=== PATIENT | female | born 1970 | race Caucasian/White ===

== ENCOUNTER 2019-12-30 10:17 | Outpatient (CLI) | payer OTHER, SELFPAY ==
--- NOTE | ~2019-12-30 | MM_ITS ---
EXAMINATION: MM screening reym BI w teri HISTORY: Screening mammogram TECHNIQUE: Craniocaudal and mediolateral oblique 3-D tomosynthesis images were obtained and synthetic 2-D images were generated. CAD analysis was submitted and interpreted. COMPARISON: Comparison to multiple prior studies sequentially, with oldest reviewed study dated 09/11. BREAST PARENCHYMAL COMPOSITION: There are scattered areas of fibroglandular density. FINDINGS: Bilateral breast asymmetries are stable. There is no evidence of suspicious mass, calcifica tion, or architectural distortion to suggest malignancy in either breast. There has been no suspiciou s interval change. IMPRESSION: 1. No mammographic evidence of malignancy. 2. Recommend routine screening mammography in one year. BI-RADS Category 1: Negative Reviewed, dictated and finalized at location A.
== END 2019-12-30 10:18 | disposition home or self-care (01) ==
LOC: ANHIMG 10:22
PROVIDERS: PCP Internal Medicine; Visit Provider Obstetrics & Gynecology
DX: Z12.31 Encounter for screening mammogram for malignant neoplasm of breast (principal)
CPT/HCPCS: 77063; 77067

== ENCOUNTER 2021-01-04 15:33 | Outpatient (CLI) | payer OTHER, SELFPAY ==
--- NOTE | ~2021-01-04 | MM_ITS ---
EXAMINATION: MM screening [facility] BI w teri HISTORY: Screening mammogram TECHNIQUE: Craniocaudal and mediolateral oblique 3-D tomosynthesis images were obtained and synthetic 2-D images were generated. CAD analysis was submitted and interpreted. COMPARISON: 12/30/2019, 12/23/2018, 12/09/2018 BREAST PARENCHYMAL COMPOSITION: There are scattered areas of fibroglandular density. FINDINGS: There is no evidence of suspicious mass, calcification, or architectural distortion to sugg est malignancy in either breast. There has been no suspicious interval change. IMPRESSION: 1. No mammographic evidence of malignancy. 2. Recommend routine screening mammography in one year. BI-RADS Category 1: Negative Reviewed, dictated and finalized at location A.
== END 2021-01-04 15:34 | disposition home or self-care (01) ==
LOC: ANHIMG 15:35
PROVIDERS: PCP Internal Medicine; Visit Provider Obstetrics & Gynecology
DX: Z12.31 Encounter for screening mammogram for malignant neoplasm of breast (principal)
CPT/HCPCS: 77063; 77067

== ENCOUNTER 2022-04-04 07:53 | Outpatient (CLI) | payer OTHER, SELFPAY ==
--- NOTE | ~2022-04-04 | MM_ITS ---
EXAMINATION: MM screening remy BI w teri HISTORY: Screening mammogram TECHNIQUE: Craniocaudal and mediolateral oblique 3-D tomosynthesis images were obtained and synthetic 2-D images were generated. CAD analysis was submitted and interpreted. COMPARISON: 01/04/2021, 12/30/2019, 12/23/2018 bilateral screening mammogram examinations BREAST PARENCHYMAL COMPOSITION: There are scattered areas of fibroglandular density. FINDINGS: New approximately 3 x 5.8 mm circumscribed opacity in the posterior central right breast (M LO Tomosynthesis image 28/59). Diagnostic right mammogram and right breast ultrasound examination are recommended. Otherwise there is no evidence of suspicious mass, calcification, or architectural distortion to sugg est malignancy in either breast. There has been no other suspicious interval change. IMPRESSION: 1. New 3 x 5.8 mm opacity in the posterior central right breast 2. Diagnostic right mammogram and targeted right breast ultrasound examination are recommended. BI-RADS Category 0: Incomplete: Needs additional imaging evaluation. Reviewed, dictated and finalized at location A.
== END 2022-04-04 07:54 | disposition home or self-care (01) ==
PROVIDERS: PCP Internal Medicine; Visit Provider Internal Medicine
DX: Z12.31 Encounter for screening mammogram for malignant neoplasm of breast (principal); R92.8 Other abnormal and inconclusive findings on diagnostic imaging of breast
CPT/HCPCS: 77063; 77067

== ENCOUNTER 2022-05-05 13:31 | Outpatient (CLI) | payer OTHER, SELFPAY ==
--- NOTE | ~2022-05-05 | MMUS_ITS ---
EXAMINATION: MM diagnostic remy RT w teri, US breast RT complete HISTORY: Follow-up right breast asymmetry TECHNIQUE: Additional 3-D tomosynthesis images of right were performed and synthetic 2-D images were generated. CAD analysis was submitted and interpreted. High resolution complete right breast ultrasou nd was performed. COMPARISON: Comparison to multiple prior studies sequentially, with oldest reviewed study dated 12/18. BREAST PARENCHYMAL COMPOSITION: Breast composed of scattered areas of fibroglandular density FINDINGS: MAMMOGRAPHIC FINDINGS: There are no suspicious masses, calcifications or architectural distortion in the right breast. ULTRASOUND: Complete right breast US of all 4 quadrants of the breasts and retroareolar region was reviewed. Ther e are multiple right breast cysts, largest at 1:00, 5 cm from the nipple measuring 6 mm. There are mi ldly enlarged right axillary lymph nodes which retain their normal fatty hilum, largest measuring 1.8 cm. These are likely reactive. IMPRESSION: 1. No evidence for malignancy in the right breast. Benign findings. 2. Routine yearly screening mammogram and regular clinical breast examination are recommended. BI-RADS Category 2: Benign finding(s). Reviewed, dictated and finalized at location A. IMPRESSION: 1. No evidence for malignancy in the right breast. Benign findings. 2. Routine yearly screening mammogram and regular clinical breast examination a re recommended. BI-RADS Category 2: Benign finding(s).
== END 2022-05-05 13:32 | disposition home or self-care (01) ==
PROVIDERS: PCP Internal Medicine; Visit Provider Internal Medicine
DX: R92.8 Other abnormal and inconclusive findings on diagnostic imaging of breast (principal)
CPT/HCPCS: 76641; 77061; 77065; G0279

== ENCOUNTER 2023-10-16 15:13 | Outpatient (CLI) | payer OTHER, SELFPAY ==
--- NOTE | ~2023-10-16 | MM_ITS ---
EXAMINATION: MM screening remy BI w teri HISTORY: Screening mammogram TECHNIQUE: Craniocaudal and mediolateral oblique 3-D tomosynthesis images were obtained and synthetic 2-D images were generated. CAD analysis was submitted and interpreted. COMPARISON: The 05/05/2022 diagnostic right mammogram and complete right breast ultrasound examinatio n BREAST PARENCHYMAL COMPOSITION: There are scattered areas of fibroglandular density. FINDINGS: There is no evidence of suspicious mass, calcification, or architectural distortion to sugg est malignancy in either breast. There has been no suspicious interval change. IMPRESSION: 1. No mammographic evidence of malignancy. 2. Recommend routine screening mammography in one year. BI-RADS Category 1: Negative Reviewed, dictated and finalized at location A.
== END 2023-10-16 15:14 | disposition home or self-care (01) ==
PROVIDERS: PCP Internal Medicine; Visit Provider Obstetrics & Gynecology
DX: Z12.31 Encounter for screening mammogram for malignant neoplasm of breast (principal)
CPT/HCPCS: 77063; 77067

== ENCOUNTER 2024-09-25 15:30 | Outpatient (CLI) | payer OTHER, SELFPAY ==
--- NOTE | ~2024-09-25 | MR_ITS ---
EXAMINATION: MR knee LT wo con DATE: 09/25/2024 16:11 INDICATION: Left knee pain TECHNIQUE: Magnetic resonance imaging (MRI) of the left knee was performed without intravenous contra st. Sequences included coronal PD-weighted FSE, coronal PD-weighted FS FSE, sagittal T2-weighted FSE , sagittal PD-weighted FS FSE and axial PD weighted fat saturated FSE. COMPARISON: Left knee radiographs dated 09/18/2024 FINDINGS: Medial compartment: Medial meniscus is normal. Articular cartilage is normal. Lateral compartment: There is increased intrasubstance signal at the inner to mid third of the lateral meniscal body but w hich does not unambiguously contact the articular surface to meet criteria for meniscal tear most lik pablito related to mucoid degeneration. There is partial thickness chondral ulceration at the anterior we ightbearing lateral femoral condyle at the juxtaposed central aspect of the lateral tibial plateau. T here is more diffuse mild partial-thickness cartilage loss but with smooth chondral surface along the lateral aspect of the central to posterior weightbearing lateral femoral condyle. There is prominent marrow edema at the lateral femoral condyle which appears centered around a couple curvilinear regions of low signal intensity underlying the articular cortices at the central to post erior weightbearing lateral femoral condyle, each with suggestion of subtle flattening of the curvatu re of the articular cortex suggesting subarticular fractures which could be due to either discrete tr auma or stress or insufficiency fractures. Patellofemoral compartment: Deep chondral ulceration and fissuring with underlying subarticular cystlike change at the cephalad a spect of the patella centered at the apical ridge and involving the small portion of the adjacent med ial and lateral patellar facets. There is additional deep chondral fissuring without degenerative sub chondral changes more caudally at the patellar apical ridge with subarticular edema and cystlike churchill ge at the central aspect of the medial patellar facet. Additional deep chondral ulceration with subar ticular edema-like and cystlike changes at the inferolateral aspect of the lateral patellar facet. Ch ondral swelling with subtle chondral surface regularity at the inferior aspect of the trochlear groov e and medial trochlea. Ligaments and tendons: Anterior and posterior cruciate ligaments are normal. The medial collateral ligament and fibular migdalia ateral ligament complex are normal. The extensor mechanism is normal. The visualized medial and later al hamstring tendons as well as the iliotibial band are normal. Fluid/other: Very small left knee joint effusion at the suprapatellar pouch. No loose osteochondral bodies identif ied. Prominent subcutaneous varicosities along the lateral aspect of the distal thigh, knee and proxi mal lower leg with additional smaller opacities at the medial aspect of the proximal lower leg. IMPRESSION: 1. Prominent marrow edema at the lateral femoral condyle surrounding nondisplaced subarticular fractu re lines underlying the central and posterior weightbearing lateral femoral condyles which could be d ue to either a discrete traumatic event or chronic stress/insufficiency fractures. 2. 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 Reviewed, dictated and finalized at location L. RMATION TECHNOLOGY ACCOUNT MANAGER IMPRESSION: 1. Prominent marrow edema at the lateral femoral condyle surrounding nondisplac ed subarticular fracture lines underlying the central and posterior weightbeari ng lateral femoral condyles which could be due to either a discrete traumatic e vent or chronic stress/insufficiency fractures. 2. Mild osteoarthritis with moderate grade chondral malacia in the lateral comp artment and moderate and high-grade chondral malacia in the patellofemoral comp artment.
== END 2024-09-25 15:31 | disposition home or self-care (01) ==
LOC: GOSHIMG 15:31
PROVIDERS: PCP Orthopaedic Surgery; Visit Provider Orthopaedic Surgery
DX: S72.425A Nondisplaced fracture of lateral condyle of left femur, initial encounter for closed fracture (principal); X58.XXXA Exposure to other specified factors, initial encounter; M17.12 Unilateral primary osteoarthritis, left knee; M94.262 Chondromalacia, left knee
CPT/HCPCS: 73721

== ENCOUNTER 2024-10-27 14:01 | Outpatient (CLI) | payer OTHER, SELFPAY ==
--- NOTE | ~2024-10-27 | MM_ITS ---
EXAMINATION: MM screening remy BI w teri HISTORY: Screening TECHNIQUE: Craniocaudal and mediolateral oblique 3-D tomosynthesis images were obtained and synthetic 2-D images were generated. CAD analysis was submitted and interpreted. COMPARISON: Comparison to multiple prior studies sequentially, with oldest reviewed study dated 09/2018. BREAST PARENCHYMAL COMPOSITION: Not dense: There are scattered areas of fibroglandular density. FINDINGS: There is no evidence of suspicious mass, calcification, or architectural distortion to sugg est malignancy in either breast. There has been no suspicious interval change. IMPRESSION: 1. No mammographic evidence of malignancy. 2. Recommend routine screening mammography in one year. BI-RADS Category 1: Negative Reviewed, dictated and finalized at location A.
--- OUTSIDE RECORDS SUMMARY | 2024-10-27 16:07 | XMS_ITS | Encounter Summary ---
Author Organization [facility] Address [address] [place] [address] Care Team Providers Care Strategic Advisor Name Role Phone Steve Salinas MD Primary Care Provider [phone] Encounter Details Date Type Department Care Team (Latest Contact Info) Description 05/08/2022 [employer] Message Enc [facility] Multispecialty Care - [place] [address] [place] [address] [address] [place] [address] Steve Salinas MD [address] [place] [address] [address] [place], [place] [id number] Mammogram result Social History Tobacco Use Types Packs/Day Years Used Date Smoking Tobacco: Every Day Cigarettes 1 35 Smokeless Tobacco: Current Comments:counseled by Dr Fátima bey Alcohol Use Standard Drinks/Week Comments Yes 0 (1 standard drink = 0.6 oz pur e alcohol) socially PHQ-2 Answer Date Recorded PHQ-2 Score - If the patient scores above 3, please move on to questions 3-9 0 04/26/2022 Comments No Sex and Gender Information Value Date Recorded Sex Assigned at Not on file Legal Sex Female 3:06 PM CDT Gender Identity Not on file Sexual Orientation Not on file COVID-19 Exposure Response Date Recorded In the last 10 days, have yo u been in contact with someone who was confirmed or suspected to have Coronavirus/COVID-19? No / Unsure 04/26/2022 7:37 AM CDT documented as of this encounter Plan of Treatment Not on file documented as of this encounter Visit Diagnoses Not on filedocumented in this encounter Additional Health Concerns Assessment Noted Time PHQ-9 Depression Total Score: 10 12/26/ 022 3:10 PM CDT documented as of this encounter Care Teams Strategic Advisor Relationship Specialty Start Date End Date Steve Salinas MD [address] [address] PCP - General INTERNAL MEDICINE 11/14/21 documented as of this encounter
--- OUTSIDE RECORDS SUMMARY | 2024-10-27 16:07 | XMS_ITS | Encounter Summary ---
Author Organization [facility] Address [address] [place] [address] Care Team Providers Care Director Of Assisted Living Name Role Phone Lin Reed MD Primary Care Provider [phone] Encounter Details Date Type Department Care Team (Late st Contact Info) Description 10/23/2024 Results Follow-Up [facility] [place] [address] [place] [address] Leigh Calixto, [place] [address] [facility] [place] [address] [place] [address] HEMOGLOBIN A1C, MICROALBUMIN/CREATIN INE RATIO, RANDOM UR, VITAMIN B12 LEVEL, Additional followed-up results: 5 Social History Tobacco Use Types Packs/Day Years Used Date Smoking Tobacco: Every Day Cigarettes Smokeless Tobacco: Never Alcohol Use Standard Drinks/Week Comments Yes 0 (1 standard drink = 0.6 oz pur e alcohol) occassionally Comments No Sex and Gender Information Value Date Recorded Sex Assigned at Not on file Legal Sex Female 9:06 AM CDT Gender Identity Not on file Sexual Orientation Not on file documented as of this encounter Miscellaneous Notes * Result Encounter Note - Leigh Calixto ANP - 10/23/2024 1:09 PM CDT Contact patient regarding result. Blood sugar remains uncontrolled. Cholesterol is high but will stay high until blood sugar improved. Vit B 12 slightly low as well. Recommend: 1- consider XR version of Metformin-- prescription less likely to cause loose bowels that medication she previously tried. 2-Start vit B 12 1000 mcg daily. 3- take a vit D supplement daily OTC. Will discuss in detail at next week appointment. documented in this encounter Plan of Treatment Not on file documented as of this encounter Visit Diagnoses Not on filedocumented in this encounter Care Teams Director Of Assisted Living Relationship Specialty Start Date End Date Lin Reed MD [address] [place] [id number] PCP - General Internal Medicine 12/18/23 documented as of this encounter
--- OUTSIDE RECORDS SUMMARY | 2024-10-27 16:07 | XMS_ITS | Continuity of Care Document ---
Author Organization [facility] Address [address] [facility] [address] [place] [address] Phone Care Team Providers Care Veneer Trimmer Name Role Phone Urbano Meneses Unavailable Unavailable Advance Directives Directive Yes / No Effective Date File Name No Information Encounters Encounter Description Practice Location Reason(s) For Visit Diagnoses Date Provider Providers Copied on Encounter [facility], [address], [place], [place], [id number], [place] tel:[phone] [facility] No Information [phone] 0 Zaira Clement. [address] [facility] , [address], [place], [address], [place]. tel:[phone] Family History Family Member Type Diagnosis Age At Onset No Information Payers Payer name Insurance type Covered constitution party ID Authoriza tion(s) No Information Social History Type Description Quantity Date Captured Comments Sex Female Smoking Status No Information Chief Complaint And Reason For Visit No Information Reason For Referral Reason For Referral No Information History Of Present Illness Encounter Date Complaint History Of Prese nt Illness No Information Functional Status Date Functional Assessmen t No Information Instructions Date Instruction Additional Infor mation No Information Assessments Type Assessment Date No Information Patient Care Teams Name Effective Dates (start - stop) Status Members No Information
--- OUTSIDE RECORDS SUMMARY | 2024-10-27 16:07 | XMS_ITS | Encounter Summary ---
Author Organization [facility] Address [address] [place] [address] Care Team Providers Care Annual Giving Director Name Role Phone Steve Salinas MD Primary Care Provider [phone] Encounter Details Date Type Department Care Team (Late st Contact Info) Description 06/14/2022 [email or web address] Message Enc [facility] Multispecialty Care - [address] [place] [address] Captain Wiset, [facility] Provider lab results Social History Tobacco Use Types Packs/Day Years Used Date Smoking Tobacco: Every Day Cigarettes 1 35 Smokeless Tobacco: Never Comments:counseled by Dr Fátima bey Alcohol Use [...] suspected to have Coronavirus/COVID-19? 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
--- OUTSIDE RECORDS SUMMARY | 2024-10-27 16:08 | XMS_ITS | Clinical Summary ---
Author Organization [facility] [employer] [facility] Address [address] [place] [address] Care Team Providers Care Supervisor Fabrication Name Role Phone Lin Reed MD Primary Care Provider [phone] Allergies Active Allergy Reactions Criticality Noted Date Comments Ciprofloxacin Unknown 08/29/2017 Metformin Diarrhea Low 02/02/2023 Penicillins Rash Low 11/14/2021 Medications primidone 50 mg tablet Take 50 mg by mouth daily at bedtime. 06/09/20 22 Active CYANOCOBALAMIN, VITAMIN B-12, ORAL Take 1,000 mcg by mouth daily. Active INTRAUTERINE DEVICE, IUD, INTRAUTERINE by Intrauterine route. Active VITAMIN E ORAL Take by mouth. Active Insulin Commerce, Disposable, 31 gauge x 5/16 NeedleIndication s:Type 2 diabetes mellitus without complication, without long-term current use of insulin (CMS/[facility]AC, [facility]) Use as directed with PEN device. 100 Each 06/22/20 23 Active rOPINIRole (REQUIP) 0.5 mg tablet take 1 tablet by mouth once daily at bedtime 90 Tablet 01/09/20 24 Active metoprolol succinate (TOPROL XL) 50 mg Extended Release 24 hour tablet Take 1 Tablet (50 mg) by mouth daily. 90 Tablet 2 06/24/20 24 Active diclofenac sodium (VOLTAREN) 75 mg Tablet, Delayed Release (E.C.) Take 1 Tablet (75 mg) by mouth 1 time daily as needed for Other (See Comment) (sciatic nerve pain). 1 Tablet 06/24/20 24 Active dapagliflozin propanediol (Farxiga) 10 mg TabletIndication s:Type 2 diabetes mellitus without complication, without long-term current use of insulin (CMS/HCC) Take 1 Tablet (10 mg) by mouth daily in the morning. 90 Tablet 07/21/20 24 Active buPROPion HCL (WELLBUTRIN XL) 300 mg Extended Release 24 hour tabletIndication s:Depressive disorder Take 1 Tablet (300 mg) by mouth daily in the morning. 90 Tablet 10/14/19 25 Active rosuvastatin (CRESTOR) 40 mg tablet Take 1 Tablet (40 mg) by mouth daily. 90 Tablet 10/14/19 25 Active sertraline (ZOLOFT) 50 mg tabletIndication s:Depressive disorder Take 1 Tablet (50 mg) by mouth daily. 90 Tablet 10/14/19 25 Active buPROPion HCL (WELLBUTRIN XL) 300 mg Extended Release 24 hour tabletIndication s:Depressive disorder Take 1 Tablet (300 mg) by mouth daily in the morning. 90 Tablet 06/24/20 24 025 Discontin ued(Reord er) rosuvastatin (CRESTOR) 40 mg tablet Take 1 Tablet (40 mg) by mouth daily. 90 Tablet 06/24/20 24 025 Discontin ued(Reord er) sertraline (ZOLOFT) 50 mg tabletIndication s:Depressive disorder Take 1 Tablet (50 mg) by mouth daily. 90 Tablet 06/24/20 24 025 Discontin ued(Reord er) Active Problems Problem Noted Date Diagnosed Date Tobacco use 07/21/2024 Chronic left-sided low back pain with left-sided sciatica 06/22/2023 Type 2 diabetes mellitus wit hout complication, without long-term current use of insulin 02/02/2023 Mixed hyperlipidemia 02/02/2023 Hereditary essential tremor 08/19/2018 Essential hypertension 08/19/2018 Depressive disorder 08/19/2018 Obesity 08/19/2018 Dystonic tremor 07/02/2017 Encounters Date Type Department Care Team Description 10/23/2024 Results Follow-Up [facility] [employer] [place] [address] [place] [phone] Leigh Calixto, LLUVIA HEMOGLOBIN A1C, MICROALBUMIN/CREATINI NE RATIO, RANDOM UR, VITAMIN B12 LEVEL, Additional followed-up results: 5 10/20/2024 7:40 AM CDT Office Visit [facility] at [employer] [place] [address] [place] [address] Type 2 diabetes mellitus without complication, without long-term current use of insulin ([facility], [facility]); Mixed hyperlipidemia 10/16/2024 1:40 PM CDT Procedure visit [facility] at [place] [address] [place] [phone] Issue of repeat prescription for medication (Primary Dx) 10/13/2024 Refill [facility] at [place] [address] [place] [phone] Leigh Calixto, ANP Depressive disorder 09/23/2024 External Device Data STL ABSTRACTION Provider, Abstract 09/15/2024 2:30 PM GAS TRANSFER OPERATOR Office Visit [facility] at [place] [address] [place] [phone] Vanda Chavarria, JAYANT Left lateral knee pain (Primary Dx) 09/10/2024 External Device Data STL ABSTRACTION Provider, Abstract 09/02/2024 External Device Data STL ABSTRACTION Provider, Abstract 08/26/2024 External Device Data STL ABSTRACTION Provider, Abstract 08/19/2024 External Device Data STL ABSTRACTION Provider, Abstract 08/19/2024 External Device Data STL ABSTRACTION Provider, Abstract 08/05/2024 External Device Data STL ABSTRACTION Provider, Abstract from Last 3 Months Immunizations Immunization Administration Dates Next Due (ADACEL/BOOSTRIX)(10 YR UP) TDAP VACCINE, 0.5ML, IM 12/26/2021 (PNEUMOVAX 23)(50 YRS UP) PN EUMOCOCCAL POLYSACCHARIDE (PPV23) 0.5 ML, IM 06/09/2022 INFLUENZA VACCINE QUADRIVALENT 6 MOS UP PF IM INFLUENZA VACCINE TRIVALENT SPLIT VIRUS, (6 MOS UP), 0.5ML (PF), IM 04/30/2024 Family History Medical History Relation Name Comments Irregular heart beat Brother 2 Sudden Brother 3 MVA Cancer Brother 4 Heart Attack Brother 4 Heart Failure Father Cancer Mother Heart Attack Paternal Grandfather No Known Problems Son Relation Name Status Comments Brother 1 Alive Brother 2 Alive Brother 3 Brother 4 Father Maternal Grandfather Maternal Grandmother Mother Paternal Grandfather Paternal Grandmother Son Alive Social History Tobacco Use Types Packs/Day Years [...] on file Sexual Orientation Not on file Last Filed Vital Signs Vital Sign Reading Time Taken Comments Blood Pressure 110/58 10/20/2024 7:26 AM CDT Pulse 67 09/15/2024 2:11 PM GAS TRANSFER OPERATOR Temperature 36.9 C (98.4 F) 09/15/2024 2:11 PM GAS TRANSFER OPERATOR Respiratory Rate 16 09/15/2024 2:11 PM GAS TRANSFER OPERATOR Oxygen Saturation 97% 09/15/2024 2:11 PM GAS TRANSFER OPERATOR Inhaled Oxygen Concentration - - Weight 93.5 kg (206 lb 3.2 oz) 10/20/2024 7:26 A M CDT Height 167.6 cm (5' 6 ) 10/20/2024 7:26 AM CDT Body Mass Index 33.28 10/20/2024 7:26 AM CDT Plan of Treatment Health Maintenance Due Date Last Done Comments HEPATITIS B VACCINES (1 of 3 - 19+ 3-dose series) 1990 HPV/Cotest (21-29) 1992 HPV/Cotest (30-65) 2001 FIT-DNA Q 3 years 2016 FIT/FOBT Q 1 year 2016 Flex Sig/CT Colonography Q 5 years 2016 ZOSTER VACCINE (1 of 2) 2021 BREAST CANCER SCREENING 05/05/2023 05/05/2022, 05/05 Preventative Visit- Commercial 07/23/2024 11/14/2021 COLORECTAL SCREENING 12/12/2024 12/12/2021 Colorectal Cancer Screening 12/12/2024 DIABETES HBA1C Q 6 MONTHS 04/21/20252024, 06/24/2024, 06/22/2023, Additional history exists DIABETES ANNUAL RETINAL EXAM 06/10/2025 06/10/2024, 12/21/2022 DIABETES ANNUAL FOOT EXAM 06/24/20252023, 06/24/2024, 06/22/2023, Additional history exists DIABETES MICROALBUMIN ANNUAL SCREEN 10/20/2025 10/20/2024, 06/24/2024, 02/02/2023 LDL CHOLESTEROL ANNUAL 10/20/2025 , 11/09/2023, 06/22/2023, Additional history exists CERVICAL CANCER SCREENING 10/21/2025 PAP SMEAR 10/21/2025 10/21/2022 (Prev iously completed) DTAP/TDAP/TD VACCINES (2 - T d or Tdap) 12/27/2031 12/26/2021 INFLUENZA VACCINE Completed 04/30/2024, 04/10/2022 Procedures Procedure Name Priority Date/Time Associated Diagnosis Comments LIPID PANEL Routine 10/20/2024 7:16 AM CDT Type 2 diabetes mellitus without complication, without long-term current use of insulin (CMS/HCC) Mixed hyperlipidemia COMPREHENSIVE METABOLIC PANEL Routine 10/20/2024 7:16 AM CDT Type 2 diabetes mellitus without complication, without long-term current use of insulin (CMS/HCC) CBC WITH DIFFERENTIAL Routine 10/20/2024 7:16 AM CDT Type 2 diabetes mellitus without complication, without long-term current use of insulin (CMS/HCC) TSH Routine 10/20/2024 7:16 AM CDT Type 2 diabetes mellitus without complication, without long-term current use of insulin (CMS/HCC) VITAMIN D 25 HYDROXY Routine 10/20/2024 7:16 AM CDT Type 2 diabetes mellitus without complication, without long-term current use of insulin (CMS/HCC) VITAMIN B12 LEVEL Routine 10/20/2024 7:1 6 AM CDT Type 2 diabetes mellitus without complication, without long-term current use of insulin (CMS/HCC) MICROALBUMIN/CREATINI NE RATIO, RANDOM UR Routine 10/20/2024 7:16 AM CDT Type 2 diabetes mellitus without complication, without long-term current use of insulin (CMS/HCC) HEMOGLOBIN A1C Routine 10/20/2024 7:16 AM CDT Type 2 diabetes mellitus without complication, without long-term current use of insulin ([facility]) from Last 3 Months Results * MICROALBUMIN/CREATININE RATIO, RANDOM UR (10/20/2024 7:16 AM CDT) Creatinine, Urine 146 20 - 275 mg/dL [facility] MICROALBUMIN, URINE 0.4 See Note: mg/dL [facility] Comment: Reference Range: Reference Range Not established MICROALBUMIN/CREAT RATIO, UR 3 <30 mg/g creat [facility] Comment: The ADA defines abnormalities in albumin excretion as follows: Albuminuria Category Result (mg/g creatinine) Normal to Mildly increased <30 Moderately increased 30-299 Severely increased > OR = 300 The ADA recommends that at least two of three specimens collected within a 3-6 month period be abnormal before considering a patient to be within a diagnostic category. Test Performed at: [facility] [address] [place] [address] Nelson Lezama MD Urine URINE SPECIMEN OBTAINED BY CLEAN CATCH PROCEDURE / Unknown 10/20/2024 7:16 AM CDT 10/21/2024 5:08 AM CDT us Leigh Calixto [facility] URINE ORDERABLES Final Resul t [facility] [phone] [facility] [address] [place] [address] * CBC WITH DIFFERENTIAL (10/20/2024 7:16 AM CDT) WBC 7.9 3.8 - 10.8 Thousand/u L [facility] RBC 4.90 3.80 - 5.10 Million/uL [facility] HEMOGLOBIN 14.5 11.7 - 15.5 g/dL [facility] HEMATOCRIT 44.3 35.0 - 45.0 % [facility] MCV 90.4 80.0 - 100.0 fL [facility] MCH 29.6 27.0 - 33.0 pg [facility] MCHC 32.7 32.0 - 36.0 g/dL [facility] Comment: For adults, a slight decrease in the calculated MCHC value (in the range of 30 to 32 g/dL) is most likely not clinically significant; however, it should be interpreted with caution in correlation with other red cell parameters and the patient's clinical condition. RDW 13.7 11.0 - 15.0 % [facility] PLATELETS 246 140 - 400 Thousand/u L [facility] MPV 9.6 7.5 - 12.5 fL [facility] NEUTROPHIL ABSOLUTE 3,753 1,500 - 7,800 cells/uL [facility] LYMPHOCYTE ABSOLUTE 3,286 850 - 3,900 cells/uL [facility] MONOCYTE ABSOLUTE 482 200 - 950 cells/uL [facility] EOSINOPHIL ABSOLUTE 332 15 - 500 cells/uL [facility] BASOPHILS ABSOLUTE 47 0 - 200 cells/uL [facility] NEUTROPHIL 47.5 % [facility] LYMPHOCYTES 41.6 % [facility] MONOCYTE 6.1 % [facility] EOSINOPHILS 4.2 % [facility] BASOPHILS 0.6 % [facility] Comment: Test Performed at: [facility] [address] Nelson Lezama MD Blood 10/20/2024 7:16 AM CDT 10/21/2024 4:57 AM CDT us Leigh aClixto [facility] HEMATOLOGY ORDERABLES Final Result [facility] [phone] [facility] [address] * (ABNORMAL) VITAMIN D 25 HYDROXY (10/20/2024 7:16 AM CDT) VITAMIN D, 25 OH, TOTAL 28(L) 30 - 100 ng/mL [facility] Comment: Vitamin D Status 25-OH Vitamin D: Deficiency: <20 ng/mL Insufficiency: 20 - 29 ng/mL Optimal: > or = 30 ng/mL For 25-OH Vitamin D testing on patients on D2-supplementation and patients for whom quantitation of D2 and D3 fractions is required, the [facility]TM) 25-OH VIT D, (D2,D3), LC/MS/MS is recommended: order code 85788 (patients >2yrs). See Note 1 Note 1 For additional information, please refer to http://education.[employer]/faq/EFL258 (This link is being provided for informational/ educational purposes only.) Test Performed at: [facility] [address] [place] [address] Nelson Lezama MD Blood 10/20/2024 7:16 AM CDT 10/21/2024 4:57 AM CDT Leigh Calixto ANP CHEMISTRY ORDERABLES Final R esult Performing Organization Address City/[facility]/ZIP Co de Phone Number [facility] [phone] [facility] [address] [place] [address] * TSH (10/20/2024 7:16 AM CDT) TSH 2.92 mIU/L [facility] Comment: Reference Range > or = 20 Years 0.40-4.50 Ranges First trimester 0.26-2.66 Second trimester 0.55-2.73 Third trimester 0.43-2.91 Test Performed at: [facility] [address] [place] [address] Nelson Lezama MD Blood 10/20/2024 7:16 AM CDT 10/21/2024 4:57 AM CDT Leigh Calixto ANP CHEMISTRY ORDERABLES Final R esult [facility] [phone] [address] * (ABNORMAL) HEMOGLOBIN A1C (10/20/2024 7:16 AM CDT) Pathologist [facility] HEMOGLOBIN A1C 7.9(H) <5.7 % of total Hgb [facility] Comment: For someone without known diabetes, a hemoglobin A1c value of 6.5% or greater indicates that they may have diabetes and this should be confirmed with a follow-up test. For someone with known diabetes, a value <7% indicates that their diabetes is well controlled and a value greater than or equal to 7% indicates suboptimal control. A1c targets should be individualized based on duration of diabetes, age, comorbid conditions, and other considerations. Currently, no consensus exists regarding use of hemoglobin A1c for diagnosis of diabetes for children. ESTIMATED AVERAGE GLUCOSE (MG/DL) 180 mg/dL [facility] ESTIMATED AVERAGE GLUCOSE (MMOL/L) 10.0 mmol/L [facility] Comment: Test Performed at: [facility] [address] [place] [address] Nelson Lezama MD Blood 10/20/2024 7:16 AM CDT 10/21/2024 4:57 AM CDT us Leigh Calixto [facility] CHEMISTRY ORDERABLES Final R esult [facility] [phone] [address] * VITAMIN B12 LEVEL (10/20/2024 7:16 AM CDT) Pathologist [facility] VITAMIN B12 384 200 - 1100 pg/mL [facility] Comment: Please Note: Although the reference range for vitamin B12 is 200-1100 pg/mL, it has been reported that between 5 and 10% of patients with values between 200 and 400 pg/mL may experience neuropsychiatric and hematologic abnormalities due to occult B12 deficiency; less than 1% of patients with values above 400 pg/mL will have symptoms. Test Performed at: [facility] [address] [place] [address] Nelson Lezama MD Blood 10/20/2024 7:16 AM CDT 10/21/2024 4:57 AM CDT us Leigh Calixto ANP CHEMISTRY ORDERABLES Final R esult [facility] [phone] [facility] [place] [address] * (ABNORMAL) LIPID PANEL (10/20/2024 7:16 AM CDT) CHOLESTEROL 177 <200 mg/dL [facility] HDL 48(L) > OR = 50 mg/dL [facility] TRIGLYCERIDE 132 <150 mg/dL [facility] LDL CALCULATED 106(H) mg/dL (calc) [facility] Comment: Reference range: <100 Desirable range <100 mg/dL for primary prevention; <70 mg/dL for patients with CHD or diabetic patients with > or = 2 CHD risk factors. LDL-C is now calculated using the Kevin-Todd calculation, which is a validated novel method providing better accuracy than the Friedewald equation in the estimation of LDL-C. Kevin SS et al. ELLE. 2013;310(19): 6198-8879 (http://education.[employer]/faq/ZRZ631) CHOL/HDL RATIO 3.7 <5.0 (calc) [facility] NON-HDL CHOLESTEROL 129 <130 mg/dL (calc) [facility] Comment: For patients with diabetes plus 1 major ASCVD risk factor, treating to a non-HDL-C goal of <100 mg/dL (LDL-C of <70 mg/dL) is considered a therapeutic option. Test Performed at: [facility] [place] [address] Nelson Lezama MD Blood 10/20/2024 7:16 AM CDT 10/21/2024 4:57 AM CDT us Leigh Calixto ANP CHEMISTRY ORDERABLES Final R esult [facility] [phone] [facility] [address] [address] * (ABNORMAL) COMPREHENSIVE METABOLIC PANEL (10/20/2024 7:16 AM CDT) GLUCOSE 167(H) 65 - 99 mg/dL [facility] Comment: Fasting reference interval For someone without known diabetes, a glucose value >125 mg/dL indicates that they may have diabetes and this should be confirmed with a follow-up test. BUN 16 7 - 25 mg/dL [facility] CREATININE 0.93 0.50 - 1.03 mg/dL [facility] GFR 73 > OR = 60 mL/min/1. 73m2 [facility] BUN/CREAT RATIO SEE NOTE: 6 - 22 (calc) [facility] Comment: Not Reported: BUN and Creatinine are within reference range. SODIUM 140 135 - 146 mmol/L [facility] POTASSIUM 4.4 3.5 - 5.3 mmol/L [facility] CHLORIDE 102 98 - 110 mmol/L [facility] CO2 27 20 - 32 mmol/L [facility] CALCIUM 9.3 8.6 - 10.4 mg/dL [facility] TOTAL PROTEIN 7.2 6.1 - 8.1 g/dL [facility] ALBUMIN 4.4 3.6 - 5.1 g/dL [facility] GLOBULIN 2.8 1.9 - 3.7 g/dL (calc) [facility] ALBUMIN/GLOBULIN RATIO 1.6 1.0 - 2.5 (calc) [facility] BILIRUBIN TOTAL 0.3 0.2 - 1.2 mg/dL [facility] ALKALINE PHOSPHATASE 73 37 - 153 U/L [facility] AST 15 10 - 35 U/L [facility] ALT 17 6 - 29 U/L [facility] Comment: Test Performed at: [facility] [address] [address] Nelson Lezama MD Blood 10/20/2024 7:16 AM CDT 10/21/2024 4:57 AM CDT us Leigh Marr Calixto [facility] CHEMISTRY ORDERABLES Final R esult [facility] [phone] [facility] [address] [phone] from Last 3 Months Insurance ALLEGIANCE ALLEGIANCE Care Teams Supervisor Fabrication Relationship Specialty Start Date End Date Lin Reed MD [address] [place], [place] [address] [place] [address] PCP - General Internal Medicine 12/18/23
--- OUTSIDE RECORDS SUMMARY | 2024-10-27 16:08 | XMS_ITS | Clinical Summary ---
Author Organization [facility] Address [address] [place] [address] Care Team Providers Care Medical Genetics Director Name Role Phone Steve Salinas MD Primary Care Provider [phone] Allergies Active Allergy Reactions Criticality Noted Date Comments Ciprofloxacin Unknown 08/29/2017 Penicillins Unknown 11/14/2021 Medications Cholecalciferol (VITAMIN D-3) 125 MCG (5000 UT) Tab vit D3-folic acid-vit B2-B6-B12 2,000 unit-800 mcg-0.32 mg tablet Take by oral route. Active nicotine 21 MG/24HRIndication s:Tobacco use Place 1 patch (21 mg total) onto the skin daily. 28 patch 11 2 Active Cyanocobalamin (VITAMIN B12 OR) Take 1,000 mg by mouth daily. Active buPROPion XL (WELLBUTRIN XL) 300 MG 24 hr tabletIndications :Tobacco use,Depressive disorder Take 1 tablet (300 mg total) by mouth every morning. 90 tablet 1 2 Active metoprolol succinate ER (TOPROL-XL) 50 MG 24 hr tabletIndications :Essential hypertension Take 1 tablet (50 mg total) by mouth daily. 90 tablet 1 2 Active primidone (MYSOLINE) 50 MG tabletIndications :Restless legs Take 1 tablet (50 mg total) by mouth nightly at bedtime. 90 tablet 1 2 Active sertraline (ZOLOFT) 50 MG tabletIndications :Mild episode of recurrent major depressive disorder,Generali zed anxiety disorder Take 1 tablet (50 mg total) by mouth daily. 90 tablet 1 2 Active rOPINIRole (REQUIP) 0.5 MG tabletIndications :Restless legs Take 1 tablet (0.5 mg total) by mouth nightly at bedtime. 90 tablet 1 2 Active diclofenac EC (VOLTAREN) 75 MG tabletIndications :Chronic midline low back pain without sciatica Take 1 tablet (75 mg total) by mouth daily. 30 tablet 5 2 Active tirzepatide (MOUNJARO) 7.5 MG/0.5ML injectionIndicati ons:Type 2 diabetes mellitus with hyperglycemia, without long-term current use of insulin ([facility]) Inject 7.5 mg into the skin weekly. 2 mL 5 2 Active glipiZIDE (GLUCOTROL) 5 MG tabletIndications :Type 2 diabetes mellitus with hyperglycemia, without long-term current use of insulin ([facility]) Take 1 tablet (5 mg total) by mouth every morning before breakfast. 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 Scanned. 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 Immunizations Name Administration Dates Next Due Fluzone 6 Months+ Quad (0.5 mL Prefilled Syringe ) 04/10/2022 Pneumococcal (Pneumovax 23) 06/09/2022 Tdap (Adacel) 12/26/2021 Family History Medical History Relation Comments Cancer Brother Heart Disease Brother Heart Disease Father Cancer Mother Relation Status Comments Brother Father Mother Social History Tobacco Use Types Packs/Day Years Used Date Smoking Tobacco: Every Day Cigarettes 1 35 Smokeless Tobacco: Never Tobacco Cessation:Ready to Q uit: Yes; Counseling Given: Yes Comments:counseled by Dr Salinas Alcohol Use Standard Drinks/Week Comments Yes 0 [...] Sign Reading Time Taken Comments Blood Pressure 112/62 07/19/2022 7:22 AM SKIING INSTRUCTOR Pulse 63 07/19/2022 7:22 AM SKIING INSTRUCTOR Temperature 37.1 C (98.7 F) 07/19/2022 7:22 AM SKIING INSTRUCTOR Respiratory Rate 18 07/19/2022 7:22 AM SKIING INSTRUCTOR Oxygen Saturation 97% 07/19/2022 7:22 AM SKIING INSTRUCTOR Inhaled Oxygen Concentration - - Weight 93.9 kg (207 lb) 07/19/2022 7:22 AM SKIING INSTRUCTOR Height 170.2 cm (5' 7 ) 07/19/2022 7:22 AM SKIING INSTRUCTOR Body Mass Index 32.42 07/19/2022 7:22 AM SKIING INSTRUCTOR Plan of Treatment Health Maintenance Due Date Last Done Comments Cervical Cancer Screening Pap Smear (Age 30 to 64) Every 3 Years 1971 Kidney Health Evaluation 1971 Diabetes: Retinopathy Eye Exam 1989 Hepatitis B Vaccines (1 of 3 - 19+ 3-dose series) 1990 Zoster Vaccines (1 of 2) 2021 Annual Physical 11/14/2022 11/14/2021 Hemoglobin A1C 01/17/2023 07/19/2022, 05/23, 11/28/2021, Additional history exists Lipid Panel 06/09/2023 06/09/2022, 11/28/2021 Pneumococcal Vaccine: Pediatrics (0 to 5 Years) and At-Risk Patients (6 to 64 Years) (2 of 2 - PCV) 06/09/2023 06/09/2022 COVID-19 Vaccine ( - 2024-25 season) 2024 PHQ-2 (Physician [place]) 07/23/2024 Colorectal Cancer Screening FIT-DNA (3 Years) 12/19/2024 12/19/2021, 12/19/2021 Mammogram Screening 10/15/2025 10/16/2023, 05/05/2022, 05/05/2022, Additional history exists Cervical Cancer Screening Pap with HPV Testing (Age 30 to 64) Every 5 Years 11/04/2025 11/04/2020 Cervical Cancer Screening with HPV 11/04/2025 DTaP, Tdap and Td Vaccines (2 - Td or Tdap) 12/27/2031 12/26/2021 Hepatitis C Completed 11/28/2021 Meningococcal B Vaccine Aged Out No l onger eligible based on patient's age to complete this topic Meningococcal Vaccine Aged Out No david eric eligible based on patient's age to complete this topic RSV Immunizations Under 20 Months Aged Out No longer eligible based on patient's age to complete this topic Procedures Procedure Name Priority Date/Time Associated Diagnosis Comments MAMMOGRAM GENERIC (SCAN ORDER) 10/16/2023 HEMOGLOBIN, GLYCOSYLATED Routine 07/19/2022 Type 2 diabetes mellitus with hyperglycemia, without long-term current use of insulin LIPID PANEL Routine 06/09/2022 8:22 AM SKIING INSTRUCTOR Hyperlipidemia associated with type 2 diabetes mellitus COLOGUARD (EXACT SCIENCE) Routine 12/19/2021 1:10 AM CDT Screen for colon cancer HEPATITIS C ANTIBODY Routine 11/28/2021 7:24 AM CDT Encounter for medical examination to establish care OUTSIDE CYTOPATH CERV/VAG INTERPRET (PAP) 11/04/2020 from Last 3 Months or Most Recently Relevant to Health Maintenance Results * MAMMOGRAM GENERIC (SCAN ORDER) (10/16/2023) Anatomical Region Laterality Modality Other 10/16/2023 [facility] Scanned SCANNING Final Resu lt * HEMOGLOBIN, GLYCOSYLATED (07/19/2022) HGB A1C 7.9 % [address], [place] 07/19/2022 Steve Salinas MD LABORATORY Final Result [address], [facility] [address] [place] [address], * (ABNORMAL) LIPID PANEL (06/09/2022 8:22 AM SKIING INSTRUCTOR) CHOLESTEROL 213(H) <200 MG/DL 06/09/2022 3:34 PM SKIING INSTRUCTOR [facility] TRIGLY[facility]ERIDES 158(H) <150 MG/DL 06/09/2022 3:34 PM SKIING INSTRUCTOR [facility] HDL 36(L) >40 MG/DL 06/09/2022 3:34 PM SKIING INSTRUCTOR [facility] [place] LDL-C 145(H) <100 MG/DL 06/09/2022 3:34 PM SKIING INSTRUCTOR [facility] VLDL CALCULATION 32(H) 5 - 28 MG/DL 06/09/2022 3:34 PM SKIING INSTRUCTOR [facility] CHOL/HDL RATIO 5.9(H) 0.0 - 4.0 06/09/2022 3:34 PM SKIING INSTRUCTOR [facility] LDL/HDL 4.0(H) 0.41 - 2.13 06/09/2022 3:34 PM SKIING INSTRUCTOR [facility] NON HDL CHOLESTEROL 177(H) <140 MG/DL 06/09/2022 3:34 PM SKIING INSTRUCTOR [facility] 06/09/2022 8:22 AM SKIING INSTRUCTOR Steve Salinas MD LABORATORY Final Result [facility] [place] [address] [place] [address], [place] [phone] * COLOGUARD (EXACT SCIENCE) (12/19/2021 1:10 AM CDT) COLOGUARD RESULT Negative Negative EX [employer] (CLIA #:[id number]) Comment: NEGATIVE TEST RESULT. A negative Cologuard result indicates a low likelihood that a colorectal cancer (CRC) or advanced adenoma (adenomatous polyps with more advanced pre-malignant features) is present. The chance that a person with a negative Cologuard test has a colorectal cancer is less than 1 in 1500 (negative predictive value >99.9%) or has an advanced adenoma is less than 5.3% (negative predictive value 94.7%). These data are based on a prospective cross-sectional study of 10,000 individuals at average risk for colorectal cancer who were screened with both Cologuard and colonoscopy. (Alissa Hays et al, N Engl J Med 2014;370(14):1031-0515) The normal value (reference range) for this assay is negative. COLOGUARD RE-SCREENING RECOMMENDATION: Periodic colorectal cancer screening is an important part of preventive healthcare for asymptomatic individuals at average risk for colorectal cancer. Following a negative Cologuard result, the [place] [employer] and U.S. Multi-Society Task Force screening guidelines recommend a Cologuard re-screening interval of 3 years. References: [place] [employer] Guideline for Colorectal Cancer Screening: https://www.cancer.org/cancer/ykkyg-ywieaj-kxlzhz/hzuqfswae-jfvkttwfv-ucvaqac/ac s-rec ommendations.html.; Maksim GUTIERREZ, Feliberto PATE, Ravinder HendricksK, Colorectal Cancer Screening: Recommendations for Physicians and Patients from the U.S. Multi-Society Task Force on Colorectal Cancer Screening , Am J Gastroenterology 2017; 112:5289-3798. TEST DESCRIPTION: Composite algorithmic analysis of stool DNA-biomarkers with hemoglobin immunoassay. Quantitative values of individual biomarkers are not reportable and are not associated with individual biomarker result reference ranges. Cologuard is intended for colorectal cancer screening of adults of either sex, 45 years or older, who are at average-risk for colorectal cancer (CRC). Cologuard has been approved for use by the U.S. FDA. The performance of Cologuard was established in a cross sectional study of average-risk adults aged 50-84. Cologuard performance in patients ages 45 to 49 years was estimated by sub-group analysis of near-age groups. Colonoscopies performed for a positive result may find as the most clinically significant lesion: colorectal cancer [4.0%], advanced adenoma (including sessile serrated polyps greater than or equal to 1cm diameter) [20%] or non- advanced adenoma [31%]; or no colorectal neoplasia [45%]. These estimates are derived from a prospective cross-sectional screening study of 10,000 individuals at average risk for colorectal cancer who were screened with both Cologuard and colonoscopy. (Alissa Petit. et al, N Engl J Med 2014;370(14):6123-8191.) Cologuard may produce a false negative or false positive result (no colorectal cancer or precancerous polyp present at colonoscopy follow up). A negative Cologuard test result does not guarantee the absence of CRC or advanced adenoma (pre-cancer). The current Cologuard screening interval is every 3 years. ([place] [employer] and U.S. Multi-Society Task Force). Cologuard performance data in a 10,000 patient pivotal study using colonoscopy as the reference method can be accessed at the following location: www.[employer]/results. Additional description of the Cologuard test process, warnings and precautions can be found at www.cologuard.com. STOOL STOOL SPECIMEN / Unknown 12/19/2021 1:10 AM CDT 12/21/2021 5:14 PM CDT Steve Salinas MD BODY FLUIDS AND STOOLS ORDERABLE S Final Result [facility]) [address] [place] [address], [employer] (CLIA #:[id number]) [address] [place] [address] * HEPATITIS C AB ([facility] ONLY) (11/28/2021 7:24 AM CDT) HEPATITIS C AB NON-REACTI VE NON-REACT JOANA 11/28/2021 6:35 PM CDT [facility] Comment: ANTIBODIES TO HCV NOT DETECTED. DOES NOT EXCLUDE THE POSSIBILITY OF EXPOSURE TO HCV. 11/28/2021 7:24 AM CDT Steve Salinas MD LABORATORY Final Result Performing Organization Address City/State/[facility] Co de Phone Number [facility] [address] [place] [address], [phone] * PAP SMEAR WITH HPV (11/04/2020) 11/04/2020 Narrative 11/04/2020 Ordered by an unspecified provider. us Documents Scanned SCANNING Final Result from Last 3 Months or Most Recently Relevant to Health Maintenance Insurance [employer] Care Teams Medical Genetics Director Relationship Specialty Start Date End Date Steve Salinas MD [address] [facility] [address] [place] [id number] PCP - General INTERNAL MEDICINE 11/14/21
== END 2024-10-27 14:02 | disposition home or self-care (01) ==
LOC: ANHIMG 14:07
PROVIDERS: Visit Provider Obstetrics & Gynecology
DX: Z12.31 Encounter for screening mammogram for malignant neoplasm of breast (principal)
CPT/HCPCS: 77063; 77067

== ENCOUNTER 2024-11-19 09:43 | Outpatient (CLI) | payer OTHER, SELFPAY ==
--- NOTE | ~2024-11-19 | DEXA_ITS ---
Bone Density Report Name: LAINEY JESUS Age: 54 Sex: Female Ethnicity: White Date of : 1970 Indication: postmenopausal; screening for osteoporosis; parental hip fracture; prior fracture; Referring Provider: NANCY, MATA Coy Study: Bone densitometry was performed. Exam Date: November 19, 2024 Accession number: [id number] Bone Density: Region BMD T-score Z-score Classification AP Spine(L1-L4) 1.062 0.1 1.1 Normal Femoral Neck (Left) 0.803 -0.4 0.5 Normal Total Hip (Left) 0.951 0.1 0.7 Normal Femoral Neck (Right) 0.737 -1.0 -0.1 Normal Total Hip (Right) 0.925 -0.1 0.5 Normal Total Hip Mean 0.938 0.0 0.6 Normal World Health Organization criteria for BMD impression classify patients as: Normal (T-score at or above -1.0), Osteopenia (T-score between -1.0 and -2.5), or Osteoporosis (T-score at or below -2.5). 10-year Fracture Risk: FRAX not reported because: All T-scores for Spine Total, Hip Total, Femoral Neck at or above -1.0 Clinical Information Provided by Patient: Has had a low trauma fracture Parent has had a hip fracture Has the following medical conditions: tremors Patient maximum height was 67.0 Menopause Age: 51 No regular weight bearing exercise Drinks caffeinated beverages Onset of menses at age 14 Number of children 1 Missed period for more than 6 months in a row Impression: The patient has normal bone mass. The patient has risk factors, including: parental hip fracture, previous fracture. Discussion: BONE DENSITY IS ABOVE THE MINIMUM DESIRABLE LEVEL AT ALL SKELETAL SITES TESTED. This patient?s bone mineral density is above the minimum desirable level (T-score -1.0 or better) at all sites measured. The patient should follow a healthful lifestyle (good nutrition with adequate calcium and vitamin D, and appropriate weight-bearing exercise). Follow-Up: Consider repeating this study in 5 years or sooner if there is some new clinical indication. Reported by: RUDY on 11/19/2024 10:22:00 AM. Reviewed, dictated and finalized at location AJonnathan MART
--- OUTSIDE RECORDS SUMMARY | 2024-11-19 10:34 | XMS_ITS | Encounter Summary ---
Author Organization [facility] Address [address] [place] [id number] Care Team Providers Care Insurance Defense Paralegal Name Role Phone Steve Salinas MD Primary Care Provider [phone] Encounter Details Date Type Department Care Team (Late st Contact Info) Description 06/14/2022 [place] Message Enc [facility] Medical [facility] Multispecialty Care - [address] [place] [address] [employer] Provider lab results Social History Tobacco Use [...] Coronavirus/COVID-19? No / Unsure 06/09/2022 7:35 AM CERTIFIED SURGICAL ASSISTANT documented as of this encounter Plan of Treatment Not on file documented as of this encounter Visit Diagnoses Not on filedocumented in this encounter Additional Health Concerns Assessment Noted Time PHQ-9 Depression Total Score: 10 022 3:10 PM CDT documented as of this encounter Care Teams Insurance Defense Paralegal Relationship Specialty Start Date End Date Steve Salinas MD [address] [address] PCP - General INTERNAL MEDICINE 11/14/21 documented as of this encounter
--- OUTSIDE RECORDS SUMMARY | 2024-11-19 10:34 | XMS_ITS | Clinical Summary ---
Author Organization [facility] Curvo MAXWELL Address [address] [place] [address] Care Team Providers Care Signal Tower Operator Name Role Phone Lin Reed MD Primary Care Provider [phone] Allergies Active Allergy Reactions Criticality Noted Date Comments Ciprofloxacin Unknown 08/29/2017 Metformin Diarrhea Low 02/02/2023 Penicillins Rash Low 11/14/2021 Medications CYANOCOBALAMIN, VITAMIN B-12, ORAL Take 1,000 mcg by mouth daily. Active INTRAUTERINE DEVICE, IUD, INTRAUTERINE by Intrauterine route. Active VITAMIN E ORAL Take by mouth. Active Insulin Onward, Disposable, 31 gauge x 5/16 NeedleIndication s:Type 2 diabetes mellitus without complication, without long-term current use of insulin ([facility]) Use as directed with PEN device. 100 Each 06/22/20 23 Active rOPINIRole (REQUIP) 0.5 mg tablet take 1 tablet by mouth once daily at bedtime 90 Tablet 01/09/20 24 Active metoprolol succinate (TOPROL XL) 50 mg Extended Release 24 hour tablet Take 1 Tablet (50 mg) by mouth daily. 90 Tablet 2 06/24/20 24 Active buPROPion HCL (WELLBUTRIN XL) 300 [...] mouth daily. 90 Tablet 10/14/19 25 Active aspirin (Geo Low Dose Aspirin) 81 mg Tablet, Delayed Release (E.C.)Indication s:Essential hypertension Take 1 Tablet (81 mg) by mouth daily. 11/05/19 25 Active metFORMIN (GLUCOPHAGE XR) 500 mg Extended Release 24 hour tablet Take 2 Tablets (1,000 mg) by mouth daily with supper. 60 Tablet 2 11/05/19 25 Active dapagliflozin propanediol (Farxiga) 10 mg TabletIndication s:Type 2 diabetes mellitus without complication, without long-term current use of insulin (CMS/HCC) Take 1 Tablet (10 mg) by mouth daily in the morning. 90 Tablet 07/21/20 24 025 Discontin ued(Formu alise Change) Active Problems Problem Noted Date Diagnosed Date Tobacco use 07/21/2024 Chronic left-sided low back pain with left-sided sciatica 06/22/2023 Type 2 diabetes mellitus wit hout complication, without long-term current use of insulin 02/02/2023 Mixed hyperlipidemia 02/02/2023 Hereditary essential tremor 08/19/2018 Essential hypertension 08/19/2018 Depressive disorder 08/19/2018 Obesity 08/19/2018 Dystonic tremor 07/02/2017 Encounters Date Type Department Care Team Description 11/17/2024 Telephone [facility] [place] [address] [place] [address] Leigh Calixto ANP PA Required?? 11/06/2024 Orders Only [facility] [place] [address] [place] [address] Leigh Calixto ANP 11/04/2024 1:30 PM CDT Office Visit [facility] [place] [address] [place] [address] Leigh Calixto, LLUVIA Type 2 diabetes mellitus without complication, without long-term current use of insulin (CMS/HCC) (Primary Dx); Chest pain, unspecified type; Mass of left side of neck; Essential hypertension; Other closed fracture of distal end of left femur, sequela; History of tobacco abuse; Stress fracture of left foot, sequela 10/23/2024 Results Follow-Up [facility] [place] [address] [place] [address] Leigh Calixto, ANP HEMOGLOBIN A1C, MICROALBUMIN/CREATINI NE RATIO, RANDOM UR, VITAMIN B12 LEVEL, Additional followed-up results: 5 10/20/2024 7:40 AM CDT Office Visit [facility] [employer] [place] [address] [place] [address] Type 2 diabetes mellitus without complication, without long-term current use of insulin ([facility]); Mixed hyperlipidemia 10/16/2024 1:40 PM CDT Procedure visit [facility] at [place] [address] [place] [address] Issue of repeat prescription for medication (Primary Dx) 10/13/2024 Refill [facility] [place] [address] [address] Leigh Calixto, LLUVIA Depressive disorder 09/23/2024 External Device Data STL ABSTRACTION Provider, Abstract 09/15/2024 2:30 PM TUBE MOLDER FIBERGLASS Office Visit [facility] [place] [address] [place] [address] Vanda hCavarria, JAYANT Left lateral knee pain (Primary Dx) [...] Sign Reading Time Taken Comments Blood Pressure 120/72 11/04/2024 1:11 PM CDT Pulse 60 11/04/2024 1:11 PM CDT Temperature 37 C (98.6 F) 11/04/2024 1:11 PM CDT Respiratory Rate 16 11/04/2024 1:11 PM CDT Oxygen Saturation 97% 11/04/2024 1:11 PM CDT Inhaled Oxygen Concentration - - Weight 94.8 kg (209 lb) 11/04/2024 1:11 PM CDT Height 167.6 cm (5' 6 ) 11/04/2024 1:11 PM CDT Body Mass Index 33.73 11/04/2024 1:11 PM CDT Plan of Treatment Upcoming Encounters Date Type Department Care Team (Late st Contact Info) Description 12/09/2024 2:30 PM CDT Office Visit [facility] at Work [facility] [place] [address] [place] [address] Leigh Calixto, ANP [address] [facility] [address] [place] [address] Health Maintenance Due Date Last Done Comments [...] Procedure Name Priority Date/Time Associated Diagnosis Comments VA ECG ROUTINE ECG W/LEAST 12 LDS W/I&R Routine 11/04/2024 1:30 PM CDT Chest pain, unspecified type LIPID PANEL Routine 10/20/2024 7:16 AM CDT [...] complication, without long-term current use of insulin ([facility]) VITAMIN D 25 HYDROXY Routine 10/20/2024 7:16 [...] complication, without long-term current use of insulin (CMS/[facility]) HEMOGLOBIN A1C Routine 10/20/2024 7:16 AM CDT Type 2 diabetes mellitus without complication, without long-term current use of insulin ([facility]) from Last 3 Months Results * VA ECG ROUTINE ECG W/LEAST 12 LDS W/I&R (11/04/2024 1:30 PM CDT) Narrative [facility] - 11/04/2024 1:30 PM CDT Leigh Calixto ANP 11/06/2024 6:57 AM EKG 12-LEAD Date/Time: 11/04/2024 1:30 PM Performed by: Leigh Calixto ANP Authorized by: Leigh Calixto ANP Comparison: not compared with previous ECG Previous ECG: no previous ECG available Rhythm: sinus bradycardia Rate: bradycardic Rate comments: on B jamie BPM: 56 Conduction: conduction normal Clinical impression: non-specific ECG Comments: Non specific ST changes II, and aVF. us Leigh TEIXEIRA ECG ORDERABLES Edited Resul t - Final [facility] CLIA# [id number] [address] [place] [address] * MICROALBUMIN/CREATININE RATIO, RANDOM UR (10/20/2024 7:16 [...] within a diagnostic category. Test Performed at: [facility] [place] [address] [place] [address] Nelson Lezama MD Urine URINE SPECIMEN OBTAINED BY CLEAN CATCH PROCEDURE / Unknown 10/20/2024 7:16 AM CDT 10/21/2024 5:08 AM CDT us Leigh Calixto ANP URINE ORDERABLES Final Resul t [facility] [phone] [facility] [place] [place] [address] * CBC WITH DIFFERENTIAL (10/20/2024 7:16 AM CDT) Pathologist [facility] WBC 7.9 3.8 - 10.8 Thousand/u L [...] [facility] Comment: Test Performed at: [employer] [address] [place] [address] Nelson Lezama MD Blood 10/20/2024 7:16 AM CDT 10/21/2024 4:57 AM CDT us Leigh Calixto [facility] HEMATOLOGY ORDERABLES Final Result [facility] [phone] [address] * (ABNORMAL) VITAMIN D 25 HYDROXY (10/20/2024 7:16 AM CDT) VITAMIN D, 25 OH, TOTAL 28(L) 30 - 100 ng/mL [facility] Comment: Vitamin D Status 25-OH Vitamin D: Deficiency: <20 ng/mL Insufficiency: 20 - 29 ng/mL Optimal: > or = 30 ng/mL For 25-OH Vitamin D testing on patients on D2-supplementation and patients for whom quantitation of D2 and D3 fractions is required, the Quest[facility]ure[facility](TM) 25-OH VIT D, (D2,D3), LC/MS/MS is recommended: order code 10193 (patients >2yrs). See Note 1 Note 1 For additional information, please refer to http://education.Clothia/faq/MEC815 (This link is being provided for informational/ educational purposes only.) Test Performed at: [facility] [address] MagalisAmparo Lezama MD Blood 10/20/2024 7:16 AM CDT 10/21/2024 4:57 AM CDT Leigh Calixto ANP CHEMISTRY ORDERABLES Final R esult Performing Organization Address [facility] Co de Phone Number [facility] [phone] [address] * TSH (10/20/2024 7:16 AM CDT) TSH 2.92 mIU/L [facility] Comment: Reference Range > or = 20 Years 0.40-4.50 Ranges First trimester 0.26-2.66 Second trimester 0.55-2.73 Third trimester 0.43-2.91 Test Performed at: [facility] [place] [address] Nelson Lezama MD Blood 10/20/2024 7:16 AM CDT 10/21/2024 4:57 AM CDT Leigh Calixto ANP CHEMISTRY ORDERABLES Final R esult Performing Organization Address City/[facility]/ZIP Co de Phone Number [facility] [phone] [address] * (ABNORMAL) HEMOGLOBIN A1C (10/20/2024 7:16 AM CDT) HEMOGLOBIN A1C 7.9(H) <5.7 % of total Hgb [facility] Comment: For someone without known diabetes, [...] children. ESTIMATED AVERAGE GLUCOSE (MG/DL) 180 mg/dL [facility] ESTIMATED AVERAGE GLUCOSE (MMOL/L) 10.0 mmol/L [facility] Comment: Test Performed at: [employer] [address] [place] [address] Nelson Lezama MD Blood 10/20/2024 7:16 AM CDT 10/21/2024 4:57 AM CDT Result [facility] Leigh Calixto [facility] CHEMISTRY ORDERABLES Final R esult [facility] [phone] [place] [address] * VITAMIN B12 LEVEL (10/20/2024 7:16 AM CDT) Pathologist [facility] VITAMIN B12 384 200 - 1100 pg/mL Georgina Goodman maria fernandaex[facility] Comment: Please Note: Although the reference range for vitamin B12 is 200-1100 pg/mL, it has been reported that between 5 and 10% of patients with values between 200 and 400 pg/mL may experience neuropsychiatric and hematologic abnormalities due to occult B12 deficiency; less than 1% of patients with values above 400 pg/mL will have symptoms. Test Performed at: [employer] [employer] [address] [place] [address] Nelson Lezama MD Blood 10/20/2024 7:16 AM CDT 10/21/2024 4:57 AM CDT Result [facility] Leigh Calixto ANP CHEMISTRY ORDERABLES Final R esult Performing Organization Address City/[facility]/ZIP Co de Phone Number [facility] [phone] [facility] [place] [address] [facility] [place] [address] * (ABNORMAL) LIPID PANEL (10/20/2024 7:16 AM [...] factors. LDL-C is now calculated using the Sami calculation, which is a validated novel method providing better accuracy than the Friedewald equation in the estimation of LDL-C. Kevin SS et al. ELLE. 2013;310(19): 8459-1212 (http://education.Clothia/faq/ISE620) CHOL/HDL RATIO 3.7 <5.0 (calc) [facility] NON-HDL CHOLESTEROL 129 <130 mg/dL (calc) [facility] Comment: For patients with diabetes plus 1 major ASCVD risk factor, treating to a non-HDL-C goal of <100 mg/dL (LDL-C of <70 mg/dL) is considered a therapeutic option. Test Performed at: [employer] [address] [facility] [place] [address] Nelson Lezama MD Blood 10/20/2024 7:16 AM CDT 10/21/2024 4:57 AM CDT Leigh Calixto ANP CHEMISTRY ORDERABLES Final R esult [facility] [phone] [facility] [place] [address] [facility] [place] [address] * (ABNORMAL) COMPREHENSIVE METABOLIC PANEL (10/20/2024 7:16 [...] [facility] Comment: Test Performed at: [facility] [place] [address] [facility] [place] [place] [address] Nelson Lezama MD Blood 10/20/2024 7:16 AM CDT 10/21/2024 4:57 AM CDT us eLigh Marr Calixto ANP CHEMISTRY ORDERABLES Final R esult [facility] [phone] [facility] [place] [address] [address] [address] from Last 3 Months Insurance ALLEGIANCE ALLEGIANCE Care Teams Signal Tower Operator Relationship Specialty Start Date End Date Lin Reed MD [address] [place] [address] [place] [address] PCP - General Internal Medicine 12/18/23
--- OUTSIDE RECORDS SUMMARY | 2024-11-19 10:34 | XMS_ITS | Clinical Summary ---
Author Organization [facility] Address [address] [place] [address] Care Team Providers Care Pet Nutrition Specialist Name Role Phone Steve Salinas MD Primary Care Provider [phone] Allergies Active Allergy Reactions Criticality Noted Date [...] hyperglycemia, without long-term current use of insulin ([facility]) Inject 7.5 mg into the skin weekly. 2 mL 5 2 Active glipiZIDE (GLUCOTROL) 5 MG tabletIndications :Type 2 diabetes mellitus with hyperglycemia, without long-term current use of insulin ([facility] HHS/[facility]) Take 1 tablet (5 mg total) by mouth every morning before breakfast. 90 tablet 1 2 Active atorvastatin (LIPITOR) 80 MG tabletIndications :Hyperlipidemia associated with type 2 diabetes mellitus ([facility]) TAKE 1 TABLET (80MG TOTAL) BY MOUTH NIGHTLY AT BEDTIME 90 tablet 3 Active Active Problems Problem Noted Date Diagnosed Date Idiopathic hypersomnia 11/15/2021 Overview (11/15/2021): Based on sleep study done at [facility] on 03/22/2017. Scanned. Depressive disorder 08/19/2018 Diabetes mellitus ([facility] HHS/HCC) 08/19/2018 Essential hypertension 08/19/2018 Hereditary essential tremor 08/19/2018 Hyperlipidemia 08/19/2018 Low back pain 08/19/2018 Obesity 08/19/2018 Restless legs 08/19/2018 Smoker 08/19/2018 Cervical dystonia 02/25/2018 Dystonic tremor 07/02/2017 Immunizations Immunization Administration Dates Next Due Fluzone 6 Months+ [...] Comments Blood Pressure 112/62 07/19/2022 7:22 AM COPYING MACHINE MECHANIC Pulse 63 07/19/2022 7:22 AM COPYING MACHINE MECHANIC Temperature 37.1 C (98.7 F) 07/19/2022 7:22 AM COPYING MACHINE MECHANIC Respiratory Rate 18 07/19/2022 7:22 AM COPYING MACHINE MECHANIC Oxygen Saturation 97% 07/19/2022 7:22 AM COPYING MACHINE MECHANIC Inhaled Oxygen Concentration - - Weight 93.9 kg (207 lb) 07/19/2022 7:22 AM COPYING MACHINE MECHANIC Height 170.2 cm (5' 7 ) 07/19/2022 7:22 AM COPYING MACHINE MECHANIC Body Mass Index 32.42 07/19/2022 7:22 AM COPYING MACHINE MECHANIC Plan of Treatment Health Maintenance Due Date [...] Lipid Panel 06/09/2023 06/09/2022, 11/28/2021 Pneumococcal Vaccine: 50+ Years (2 of 2 - PCV) 06/09/2023 06/09/2022 COVID-19 Vaccine ( - season) 2024 PHQ-2 (Physician [place]) 07/23/2024 Colorectal Cancer Screening FIT-DNA (3 Years) [...] insulin LIPID PANEL Routine 06/09/2022 8:22 AM COPYING MACHINE MECHANIC Hyperlipidemia associated with type 2 diabetes mellitus [...] MD LABORATORY Final Result [address], [place] [address] [place] [address], * (ABNORMAL) LIPID PANEL (06/09/2022 8:22 AM COPYING MACHINE MECHANIC) Pathologist [facility] CHOLESTEROL 213(H) <200 MG/DL 06/09/2022 3:34 PM COPYING MACHINE MECHANIC [facility] TRIGLYCERIDES 158(H) <150 MG/DL 06/09/2022 3:34 PM COPYING MACHINE MECHANIC [facility] HDL 36(L) >40 MG/DL 06/09/2022 3:34 PM COPYING MACHINE MECHANIC [facility] LDL-C 145(H) <100 MG/DL 06/09/2022 3:34 PM COPYING MACHINE MECHANIC [facility] VLDL CALCULATION 32(H) 5 - 28 MG/DL 06/09/2022 3:34 PM COPYING MACHINE MECHANIC [facility] CHOL/HDL RATIO 5.9(H) 0.0 - 4.0 06/09/2022 3:34 PM COPYING MACHINE MECHANIC [facility] LDL/HDL 4.0(H) 0.41 - 2.13 06/09/2022 3:34 PM COPYING MACHINE MECHANIC [facility] NON HDL CHOLESTEROL 177(H) <140 MG/DL 06/09/2022 3:34 PM COPYING MACHINE MECHANIC [facility] 06/09/2022 8:22 AM COPYING MACHINE MECHANIC Steve Salinas MD LABORATORY Final Result [facility] [address] [place] [address], [place] [phone] * COLOGUARD (EXACT SCIENCE) (12/19/2021 1:10 AM CDT) COLOGUARD RESULT Negative Negative [employer] (CLIA #:[id number]) Comment: NEGATIVE TEST RESULT. A negative Cologuard [...] screened with both Cologuard and colonoscopy. (Alissa Barry al, N Engl J Med 2014;370(14):7489-0792) The normal value (reference range) for this assay is negative. COLOGUARD RE-SCREENING RECOMMENDATION: Periodic colorectal cancer screening is an important part of preventive healthcare for asymptomatic individuals at average risk for colorectal cancer. Following a negative Cologuard result, the [place] Cancer Society and U.S. Multi-Society Task Force screening guidelines recommend a Cologuard re-screening interval of 3 years. References: [place] Cancer Society Guideline for Colorectal Cancer Screening: https://www.cancer.org/cancer/ctycd-xdivlf-jyhbun/nkqffhlcf-ixndctarv-yxkgeze/ac s-rec ommendations.html.; Maksim DK, Feliberto CR, Ravinder HendricksK, Colorectal Cancer Screening: Recommendations for Physicians and Patients from the U.S. Multi-Society Task Force on Colorectal Cancer Screening , Am J Gastroenterology 2017; 112:1816-7254. TEST DESCRIPTION: Composite algorithmic analysis of stool [...] screened with both Cologuard and colonoscopy. (Alissa Barry al, N Engl J Med 2014;370(14):5670-3772.) Cologuard may produce a false negative or false positive result (no colorectal cancer or precancerous polyp present at colonoscopy follow up). A negative Cologuard test result does not guarantee the absence of CRC or advanced adenoma (pre-cancer). The current Cologuard screening interval is every 3 years. ([place] Cancer Society and U.S. Multi-Society Task Force). Cologuard performance data in a 10,000 patient pivotal study using colonoscopy as the reference method can be accessed at the following location: www.Valderm.Hammer & Chisel/results. Additional description of the Cologuard test process, warnings and precautions can be found at www.cologuard.com. STOOL STOOL SPECIMEN / Unknown 12/19/2021 1:10 AM CDT 12/21/2021 5:14 PM CDT Steve Salinas MD BODY FLUIDS AND STOOLS ORDERABLE S Final Result [facility] ([address] [facility]) [address] [place] [address], [employer] (CLIA #:[id number]) [address] [place] [address] * HEPATITIS C AB ([facility] ONLY) (11/28/2021 7:24 AM CDT) HEPATITIS C AB NON-REACTI VE NON-REACT JOANA 11/28/2021 6:35 PM CDT [facility] Comment: ANTIBODIES TO HCV NOT DETECTED. DOES NOT EXCLUDE THE POSSIBILITY OF EXPOSURE TO HCV. 11/28/2021 7:24 AM CDT Steve Salinas MD LABORATORY Final Result [facility] [address] [place] [address], [id number] * PAP SMEAR WITH HPV (11/04/2020) 11/04/2020 Narrative 11/04/2020 Ordered by an unspecified provider. Documents Scanned SCANNING Final Result from Last 3 Months or Most Recently Relevant to Health Maintenance Insurance [employer] Care Teams Pet Nutrition Specialist Relationship Specialty Start Date End Date Steve Salinas MD [address] [facility] [address] [place] [address] PCP - General INTERNAL MEDICINE 11/14/21
--- OUTSIDE RECORDS SUMMARY | 2024-11-19 10:34 | XMS_ITS | Encounter Summary ---
Author Organization [facility] Address [address] [place] [address] Care Team Providers Care Ward Assistant Name Role Phone Steve Salinas MD Primary Care Provider [phone] Encounter Details Date Type Department Care Team (Latest Contact Info) Description 05/08/2022 PreisAnalyticshart Message Enc [facility] [place] [address] [place] [address] [address] [place] [address] Steve Salinas MD [address] [place] [address] [address] [place], [place] [id number] Mammogram result Social History Tobacco Use Types [...] documented as of this encounter Care Teams Ward Assistant Relationship Specialty Start Date End Date Steve Salinas MD [address] [address] PCP - General INTERNAL MEDICINE 11/14/21 documented as of this encounter
--- OUTSIDE RECORDS SUMMARY | 2024-11-19 10:34 | XMS_ITS | Encounter Summary ---
Author Organization [facility] Address [address] [place] [address] Care Team Providers Care Egg Crater Name Role Phone Lin Reed MD Primary Care Provider Encounter Details Date Type Department Care Team (Late st Contact Info) Description 10/23/2024 Results Follow-Up [facility] [employer] [place] [address] [place] [address] Leigh Calixto, [place] [address] [facility] [place] [address] [place] [address] HEMOGLOBIN A1C, MICROALBUMIN/CREATIN INE RATIO, [...] Miscellaneous Notes * Result Encounter Note - Sherin Reyez - 10/30/2024 3:48 PM CDT Patient has been scheduled for 11/04/24 * Result Encounter Note - Leigh Calixto [...] documented in this encounter Plan of Treatment Upcoming Encounters Date Type Department Care Team (Late st Contact Info) Description 12/09/2024 2:30 PM CDT Office Visit [facility] [employer] [place] [address] [address] [place]P [address] [facility] Jameemar Atul [address] [address] documented as of this encounter Visit Diagnoses Not on filedocumented in this encounter Care Teams Egg Crater Relationship Specialty Start Date End Date Lin Reed MD [address] [place] [address] PCP - General Internal Medicine 12/18/23 documented as of this encounter
--- OUTSIDE RECORDS SUMMARY | 2024-11-19 10:34 | XMS_ITS | Continuity of Care Document ---
Author Organization [facility] Address [address] [facility] [address] [place] [address] Phone Care Team Providers Care Director Of Operations Support Name Role Phone Urbano Meneses Unavailable Unavailable Advance Directives Directive Yes / No Effective Date File Name No Information Encounters Encounter Description Practice Location Reason(s) For Visit Diagnoses Date Provider Providers Copied on Encounter [facility], [address], [place], [place], [id number], [place] tel:[phone] [facility] No Information [phone] Zaira Clement. [address] [facility] , [address], [place], [address], [place]. tel:[phone] Family History Family Member Type Diagnosis Age At Onset No Information Payers Payer name Insurance type Covered libertarian ID Authoriza tion(s) No Information Social History [...]
== END 2024-11-19 09:44 | disposition home or self-care (01) ==
LOC: ANHIMG 09:44
PROVIDERS: PCP Nurse Practitioner Adult Health; Visit Provider Nurse Practitioner Adult Health
DX: S72.492S Other fracture of lower end of left femur, sequela (principal); M84.375S Stress fracture, left foot, sequela; X58.XXXS Exposure to other specified factors, sequela; Z87.891 Personal history of nicotine dependence; Z78.0 Asymptomatic menopausal state
CPT/HCPCS: 77080

== ENCOUNTER 2024-11-20 09:25 | Outpatient (CLI) | payer OTHER, SELFPAY ==
--- NOTE | 2024-11-20 | EST_ITS ---
Patient Info Name: Erica Fernandez Age: 54 years : 1970 Gender: Female Ht: 67 in Wt: 205 lbs BSA: 2.13 m2 Exam Date: 11/20/2024 10:33 AM Exam Location: Echo Lab Patient Status: Outpatient Admit Date: 11/20/2024 Staff Ordering Physician: Durga, Leigh Coy APRN Attending Provider: Durga, Leigh Coy APRN Exercise Technologist: Laurie Phelps RDCS Exercise Physician: DR ACOSTA Exam Type: CA stress mariya w NM Study Info Indications R07.9 - Chest pain, unspecified A regadenoson stress test was performed. Summary 1. Pharmacological stress protocol. 2. There Is no evidence of ischemia after pharmacological stress. 3. Perfusion study reported separately by Radiology. Protocol: Lexiscan Stress ECG Details Stage: REST Duration (min): 1 min : 44 sec HR (bpm): 49 SBP (mmHg): 128 DBP (mmHg): 72 Stage: REST Duration (min): 25 min : 35 sec HR (bpm): 56 SBP (mmHg): 128 DBP (mmHg): 72 Stage: STAGE 1 Duration (min): 0 min : 59 sec HR (bpm): 86 SBP (mmHg): 142 DBP (mmHg): 58 Stage: RECOVERY Duration (min): 1 min : 0 sec HR (bpm): 76 SBP (mmHg): 142 DBP (mmHg): 58 Stage: RECOVERY Duration (min): 2 min : 0 sec HR (bpm): 72 SBP (mmHg): 142 DBP (mmHg): 58 Stage: RECOVERY Duration (min): 3 min : 0 sec HR (bpm): 66 SBP (mmHg): 107 DBP (mmHg): 62 Stage: RECOVERY Duration (min): 3 min : 43 sec HR (bpm): 68 SBP (mmHg): 109 DBP (mmHg): 63 Rest HR: 56 bpm Peak HR: 86 bpm Rest Sys BP: 128 mmHg Peak Sys BP: 142 mmHg Max Pred HR: 167 bpm % Max Pred HR: 51 % Target HR: 142 bpm Max RPP: 12,212 bpm*mmHg Total Time: 1 min : 0 sec Rest Manzanares BP: 72 mmHg Peak Manzanares BP: 58 mmHg Total Dose: 0.4 mg Report Signatures
--- NOTE | ~2024-11-20 | XR_ITS ---
EXAMINATION: XR chest 2V 11/20/2024 09:52 INDICATION: History of tobacco use PROCEDURE: 2 view chest COMPARISON: No prior studies for comparison. FINDINGS: The lungs are clear. The cardiomediastinal silhouette is within normal limits. There are no pleural effusions. There is no pneumothorax suspected. IMPRESSION: 1: NO ACUTE CARDIOPULMONARY DISEASE. Reviewed, dictated and finalized at location A.
--- NOTE | ~2024-11-20 | NM_ITS ---
EXAMINATION: NM mariya stress w perfusion DATE: 11/20/2024 12:06 INDICATION: Type 2 diabetes TECHNIQUE: Rest images were obtained following intravenous administration of 9.82 mCi Tc99m tetrofosm in (Myoview). The patient was infused intravenously with Lexiscan (Regadenoson). Then, 8.3 mCi Tc99m tetrofosmin (Myoview) was administered intravenously, and stress images were obtained. Data was recon structed into short axis and horizontal and vertical long axis SPECT images. Gated SPECT images were also obtained. COMPARISON: None. FINDINGS: There is no definite reversible or fixed perfusion abnormality to suggest ischemia or infar ction. There is normal left ventricular chamber size, wall motion and ejection fraction. Left ventr icular ejection fraction measures 60%. IMPRESSION: 1. Normal myocardial perfusion at rest and during stress. 2. Left ventricular ejection fraction measuring 60%. Reviewed, dictated and finalized at location B.
--- OUTSIDE RECORDS SUMMARY | 2024-11-20 09:56 | XMS_ITS | Encounter Summary ---
Author Organization [facility] Address [address] [place] [address] Care Team Providers Care Sharepoint Application Developer Name Role Phone Steve Salinas MD Primary Care Provider [phone] Encounter Details Date Type Department Care Team (Latest Contact Info) Description 05/08/2022 French [facility] Message Enc [facility] Medical [facility] Multispecialty Care - [place] [address] [place] [address] [address] [place] [address] Steve Salinas MD [address] [place] [address] [address] [place], [place] [id number] Mammogram result Social History Tobacco Use Types [...] documented as of this encounter Care Teams Sharepoint Application Developer Relationship Specialty Start Date End Date Steve Salinas MD [address] [address] PCP - General INTERNAL MEDICINE 11/14/21 documented as of this encounter
--- OUTSIDE RECORDS SUMMARY | 2024-11-20 09:56 | XMS_ITS | Encounter Summary ---
Author Organization [facility] Address [address] [place] [address] Care Team Providers Care Assembler Convertible Top Name Role Phone Lin Reed MD Primary Care Provider [phone] Encounter Details Date Type Department Care Team (Late st Contact Info) Description 10/23/2024 Results Follow-Up [facility] [facility] [place] [address] [place] [address] Leigh Calixto, LLUVIA [address] [facility] [address] [place] [address] [place] [address] HEMOGLOBIN A1C, MICROALBUMIN/CREATIN INE RATIO, [...] Description 12/09/2024 2:30 PM CDT Office Visit [facility] [place] [address] [place] [address] Leigh Calixto [place]P [address] [facility] Jameemar Atul [address] [address] documented as of this encounter Visit Diagnoses Not on filedocumented in this encounter Care Teams Assembler Convertible Top Relationship Specialty Start Date End Date Lin Reed MD [address] [place] [address] PCP - General Internal Medicine 12/18/23 documented as of this encounter
--- OUTSIDE RECORDS SUMMARY | 2024-11-20 09:56 | XMS_ITS | Encounter Summary ---
Author Organization [facility] Address [address] [place] [address] Care Team Providers Care Diamond Wheel Edger Name Role Phone Steve Salinas MD Primary Care Provider [phone] Encounter Details Date Type Department Care Team (Late st Contact Info) Description 06/14/2022 [facility] Message Enc [facility] Medical Group Multispecialty Care - [address] [place] [address] icomasoftt, [facility] Provider lab results Social History Tobacco Use [...] Coronavirus/COVID-19? No / Unsure 06/09/2022 7:35 AM CONTROL MANAGER documented as of this encounter Plan of Treatment Not on file documented as of this encounter Visit Diagnoses Not on filedocumented in this encounter Additional Health Concerns Assessment Noted Time PHQ-9 Depression Total Score: 10 022 3:10 PM CDT documented as of this encounter Care Teams Diamond Wheel Edger Relationship Specialty Start Date End Date Steve Salinas MD [address] [address] PCP - General INTERNAL MEDICINE 11/14/21 documented as of this encounter
--- OUTSIDE RECORDS SUMMARY | 2024-11-20 09:56 | XMS_ITS | Clinical Summary ---
Author Organization [facility] [employer] Address [address] [place] [address] Care Team Providers Care Reciprocating Drill Operator Name Role Phone Lin Reed MD Primary Care Provider [phone] Allergies Active Allergy Reactions Criticality Noted Date Comments Ciprofloxacin Unknown 08/29/2017 Metformin Diarrhea Low 02/02/2023 Penicillins Rash Low 11/14/2021 Medications CYANOCOBALAMIN, VITAMIN B-12, ORAL Take 1,000 mcg by mouth daily. Active INTRAUTERINE DEVICE, IUD, INTRAUTERINE by Intrauterine route. Active VITAMIN E ORAL Take by mouth. Active Insulin [place], Disposable, 31 gauge x 5/16 NeedleIndication s:Type 2 diabetes mellitus without complication, without long-term current use of insulin ([facility]) Use as directed with PEN [...] Type Department Care Team Description 11/17/2024 Telephone [facility] [employer] [place] [address] [place] [address] Leigh Calixto ANP PA Required?? 11/06/2024 Orders Only [facility] [employer] [place] [address] [place] [address] Leigh Calixto ANP 11/04/2024 1:30 PM CDT Office Visit [facility] [employer] [place] [address] [place] [address] Leigh Calixto, LLUVIA Type 2 diabetes mellitus without complication, without long-term current use of insulin (CMS/HCC) (Primary Dx); Chest pain, unspecified type; Mass of left side of neck; Essential hypertension; Other closed fracture of distal end of left femur, sequela; History of tobacco abuse; Stress fracture of left foot, sequela 10/23/2024 Results Follow-Up [facility] [employer] [place] [address] [place] [address] Leigh Calixto, ANP HEMOGLOBIN A1C, MICROALBUMIN/CREATINI NE RATIO, RANDOM UR, VITAMIN B12 LEVEL, Additional followed-up results: 5 10/20/2024 7:40 AM CDT Office Visit [facility] [facility] [place] [address] [place] [address] Type 2 diabetes mellitus without complication, without long-term current use of insulin ([facility]); Mixed hyperlipidemia 10/16/2024 1:40 PM CDT Procedure visit [facility] [place] [address] [place] [address] Issue of repeat prescription for medication (Primary Dx) 10/13/2024 Refill [facility] [place] [address] [place] [address] Leigh Calixto, LLUVIA Depressive disorder 09/23/2024 External Device Data STL ABSTRACTION Provider, Abstract 09/15/2024 2:30 PM CAN CUTTER Office Visit [facility] [place] [address] [place] [address] Vanda Chavarria, JAYANT Left lateral knee pain [...] Description 12/09/2024 2:30 PM CDT Office Visit [facility] at [facility] [employer] [place] [address] [place] [address] Leigh Calixto, ANP [address] [facility] Carol [facility] [address] [place] [address] Health Maintenance Due Date Last [...] Procedure Name Priority Date/Time Associated Diagnosis Comments MT ECG ROUTINE ECG W/LEAST 12 LDS W/I&R [...] complication, without long-term current use of insulin ([facility]) VITAMIN D 25 HYDROXY Routine [...] complication, without long-term current use of insulin ([facility]) from Last 3 Months Results * MT ECG ROUTINE ECG W/LEAST 12 LDS W/I&R (11/04/2024 1:30 PM CDT) Narrative [facility] - 11/04/2024 1:30 PM CDT Leigh Calixto [...] ECG ORDERABLES Edited Resul t - Final [facility] CLIA# [id number] [address] [place] [address] * MICROALBUMIN/CREATININE RATIO, RANDOM UR (10/20/2024 7:16 [...] within a diagnostic category. Test Performed at: [facility] [address] [place] [address] Nelson Lezama MD Urine URINE SPECIMEN OBTAINED BY CLEAN CATCH PROCEDURE / Unknown 10/20/2024 7:16 AM CDT 10/21/2024 5:08 AM CDT us Leigh Calixto ANP URINE ORDERABLES Final Resul t [facility] [phone] [facility] [place] [address] * CBC WITH DIFFERENTIAL (10/20/2024 7:16 AM CDT) Pathologist [facility] WBC 7.9 3.8 - 10.8 Thousand/u L [...] [facility] Comment: Test Performed at: [facility] [address] [place] [address] Nelson Lezama MD Blood 10/20/2024 7:16 AM CDT 10/21/2024 4:57 AM CDT us Leigh Calixto [facility] HEMATOLOGY ORDERABLES Final Result [facility] [phone] [employer] [address] * (ABNORMAL) VITAMIN D 25 HYDROXY (10/20/2024 7:16 AM CDT) VITAMIN D, 25 OH, TOTAL 28(L) 30 - 100 ng/mL [facility] Comment: Vitamin D Status 25-OH Vitamin D: Deficiency: <20 ng/mL Insufficiency: 20 - 29 ng/mL Optimal: > or = 30 ng/mL For 25-OH Vitamin D testing on patients on D2-supplementation and patients for whom quantitation of D2 and D3 fractions is required, the Quest[facility](TM) 25-OH VIT D, (D2,D3), LC/MS/MS is recommended: order code [id number] (patients >2yrs). See Note 1 Note 1 For additional information, please refer to http://education.FilmLoop/faq/RDM320 (This link is being provided for informational/ educational purposes only.) Test Performed at: [facility] [address] MagalisAmparo Lezama MD Blood 10/20/2024 7:16 AM CDT 10/21/2024 4:57 AM CDT Leigh Calixto ANP CHEMISTRY ORDERABLES Final R esult Performing Organization Address [facility] Co de Phone Number [facility] [phone] [address] * TSH (10/20/2024 7:16 AM CDT) TSH 2.92 mIU/L [facility] Comment: Reference Range > or = 20 Years 0.40-4.50 Ranges First trimester 0.26-2.66 Second trimester 0.55-2.73 Third trimester 0.43-2.91 Test Performed at: [facility] [address] Nelson Lezama MD Blood 10/20/2024 7:16 AM CDT 10/21/2024 4:57 AM CDT Leigh Calixto ANP CHEMISTRY ORDERABLES Final R esult Performing Organization Address City/[facility]/ZIP Co de Phone Number [facility] [phone] [address] * (ABNORMAL) HEMOGLOBIN A1C (10/20/2024 7:16 AM [...] children. ESTIMATED AVERAGE GLUCOSE (MG/DL) 180 mg/dL [facility] ESTIMATED AVERAGE GLUCOSE (MMOL/L) 10.0 mmol/L [facility] [facility] Comment: Test Performed at: [facility] [address] [place] [address] Nelson Lezama MD Blood 10/20/2024 7:16 AM CDT 10/21/2024 4:57 AM CDT Result [facility] Leigh Calixto [facility] CHEMISTRY ORDERABLES Final R esult [facility] [phone] [employer] [place] [address] * VITAMIN B12 LEVEL (10/20/2024 7:16 AM CDT) Pathologist [facility] VITAMIN B12 384 200 - 1100 pg/mL [employer] [facility] Comment: Please Note: Although the reference range for vitamin B12 is 200-1100 pg/mL, it has been reported that between 5 and 10% of patients with values between 200 and 400 pg/mL may experience neuropsychiatric and hematologic abnormalities due to occult B12 deficiency; less than 1% of patients with values above 400 pg/mL will have symptoms. Test Performed at: [facility] [address] [place] [address] Nelson Lezama MD Blood 10/20/2024 7:16 AM CDT 10/21/2024 4:57 AM CDT Result [facility] Leigh Calixto ANP CHEMISTRY ORDERABLES Final R esult Performing Organization Address City/[facility]/ZIP Co de Phone Number [facility] [phone] [facility] [address] [facility] [place] [address] * (ABNORMAL) LIPID PANEL (10/20/2024 7:16 AM [...] LDL-C. Kevin SS et al. ELLE. 2013;310(19): 6377-1765 (http://education.FilmLoop/faq/BUI527) CHOL/HDL RATIO 3.7 <5.0 (calc) [facility] NON-HDL CHOLESTEROL 129 <130 mg/dL (calc) [facility] Comment: For patients with diabetes plus 1 major ASCVD risk factor, treating to a non-HDL-C goal of <100 mg/dL (LDL-C of <70 mg/dL) is considered a therapeutic option. Test Performed at: [facility] [address] [facility] [place] [address] Nelson Lezama MD Blood 10/20/2024 7:16 AM CDT 10/21/2024 4:57 AM CDT Leigh Calixto ANP CHEMISTRY ORDERABLES Final R esult [facility] [phone] [facility] [address] [facility] [place] [address] * (ABNORMAL) COMPREHENSIVE METABOLIC PANEL (10/20/2024 7:16 [...] [facility] Comment: Test Performed at: [facility] [address] [facility] [place] [place] [address] Nelson Lezama MD Blood 10/20/2024 7:16 AM CDT 10/21/2024 4:57 AM CDT us Leigh Marr Calixto ANP CHEMISTRY ORDERABLES Final R esult [facility] [phone] [facility] [address] [address] from Last 3 Months Insurance ALLEGIANCE ALLEGIANCE Care Teams Reciprocating Drill Operator Relationship Specialty Start Date End Date Lin Reed MD [address] [place] [address] [place] [address] PCP - General Internal Medicine 12/18/23
--- OUTSIDE RECORDS SUMMARY | 2024-11-20 09:56 | XMS_ITS | Continuity of Care Document ---
Author Organization [facility] Address [address] [facility] [address] [place] [address] Phone Care Team Providers Care Backup Operator Name Role Phone Urbano Meneses Unavailable Unavailable Advance Directives Directive Yes / No Effective Date File Name No Information Encounters Encounter Description Practice Location Reason(s) For Visit Diagnoses Date Provider Providers Copied on Encounter [facility], [address] [place], [place], [id number], [place] tel:[phone] [facility] No Information [phone] Zaira Clement. [address] [facility] , [address], [place], [address], [place]. tel:[phone] Family History Family Member Type Diagnosis Age At Onset No Information Payers Payer name Insurance type Covered democrat ID Authoriza tion(s) No Information Social History [...]
--- OUTSIDE RECORDS SUMMARY | 2024-11-20 09:56 | XMS_ITS | Clinical Summary ---
Author Organization [facility] Address [address] [place] [address] Care Team Providers Care Three Knife Trimmer Name Role Phone Steve Salinas MD Primary Care Provider [phone] Allergies Active Allergy Reactions Criticality Noted Date [...] hyperglycemia, without long-term current use of insulin ([facility]) Inject 7.5 mg into the skin weekly. 2 mL 5 2 Active glipiZIDE (GLUCOTROL) 5 MG tabletIndications :Type 2 diabetes mellitus with hyperglycemia, without long-term current use of insulin ([facility] HHS/[facility]) Take 1 tablet (5 mg total) by mouth every morning before breakfast. 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 Scanned. Depressive disorder 08/19/2018 Diabetes mellitus ([facility] HHS/HCC) 08/19/2018 Essential hypertension 08/19/2018 [...] Comments Blood Pressure 112/62 07/19/2022 7:22 AM TRAFFIC TECHNICIAN Pulse 63 07/19/2022 7:22 AM TRAFFIC TECHNICIAN Temperature 37.1 C (98.7 F) 07/19/2022 7:22 AM TRAFFIC TECHNICIAN Respiratory Rate 18 07/19/2022 7:22 AM TRAFFIC TECHNICIAN Oxygen Saturation 97% 07/19/2022 7:22 AM TRAFFIC TECHNICIAN Inhaled Oxygen Concentration - - Weight 93.9 kg (207 lb) 07/19/2022 7:22 AM TRAFFIC TECHNICIAN Height 170.2 cm (5' 7 ) 07/19/2022 7:22 AM TRAFFIC TECHNICIAN Body Mass Index 32.42 07/19/2022 7:22 AM TRAFFIC TECHNICIAN Plan of Treatment Health Maintenance Due Date [...] Vaccine ( - season) 2024 PHQ-2 (Physician [place]) 07/23/2024 Colorectal Cancer Screening FIT-DNA (3 Years) [...] insulin LIPID PANEL Routine 06/09/2022 8:22 AM TRAFFIC TECHNICIAN Hyperlipidemia associated with type 2 diabetes mellitus [...] [address], [place] [address] [place] [address], * (ABNORMAL) LIPID PANEL (06/09/2022 8:22 AM TRAFFIC TECHNICIAN) Pathologist [facility] CHOLESTEROL 213(H) <200 MG/DL 06/09/2022 3:34 PM TRAFFIC TECHNICIAN [facility] TRIGLYCERIDES 158(H) <150 MG/DL 06/09/2022 3:34 PM TRAFFIC TECHNICIAN [facility] HDL 36(L) >40 MG/DL 06/09/2022 3:34 PM TRAFFIC TECHNICIAN [facility] LDL-C 145(H) <100 MG/DL 06/09/2022 3:34 PM TRAFFIC TECHNICIAN [facility] VLDL CALCULATION 32(H) 5 - 28 MG/DL 06/09/2022 3:34 PM TRAFFIC TECHNICIAN [facility] CHOL/HDL RATIO 5.9(H) 0.0 - 4.0 06/09/2022 3:34 PM TRAFFIC TECHNICIAN [facility] LDL/HDL 4.0(H) 0.41 - 2.13 06/09/2022 3:34 PM TRAFFIC TECHNICIAN [facility] NON HDL CHOLESTEROL 177(H) <140 MG/DL 06/09/2022 3:34 PM TRAFFIC TECHNICIAN [facility] 06/09/2022 8:22 AM TRAFFIC TECHNICIAN Steve aSlinas MD LABORATORY Final Result [facility] [place] [address] [place] [address], [place] [phone] * COLOGUARD (EXACT SCIENCE) (12/19/2021 1:10 AM CDT) COLOGUARD RESULT Negative Negative [employer] (CLIA #:[id number]) Comment: NEGATIVE TEST RESULT. A negative Cologuard [...] (Alissa Barry al, N Engl J Med 2014;370(14):2596-7465) The normal value (reference range) for this assay is negative. COLOGUARD RE-SCREENING RECOMMENDATION: Periodic colorectal cancer screening is an important part of preventive healthcare for asymptomatic individuals at average risk for colorectal cancer. Following a negative Cologuard result, the [place] Cancer Society and U.S. Multi-Society Task Force screening guidelines recommend a Cologuard re-screening interval of 3 years. References: [place] Cancer Society Guideline for Colorectal Cancer Screening: https://www.cancer.org/cancer/cgxdu-fliody-jbvzwy/oqoovdbnm-qhsljubyc-mucyvuc/ac s-rec ommendations.html.; Maksim DK, Feliberto CR, Ravinder HendricksK, Colorectal Cancer Screening: Recommendations for Physicians and Patients from the U.S. Multi-Society Task Force on Colorectal Cancer Screening , Am J Gastroenterology 2017; 112:7181-5100. TEST DESCRIPTION: Composite algorithmic analysis of stool [...] (Alissa Barry al, N Engl J Med 2014;370(14):8616-3127.) Cologuard may produce a false negative or false positive result (no colorectal cancer or precancerous polyp present at colonoscopy follow up). A negative Cologuard test result does not guarantee the absence of CRC or advanced adenoma (pre-cancer). The current Cologuard screening interval is every 3 years. ([place] Cancer Society and U.S. Multi-Society Task Force). Cologuard performance data in a 10,000 patient pivotal study using colonoscopy as the reference method can be accessed at the following location: www.Flint.Bitdeli/results. Additional description of the Cologuard test process, warnings and precautions can be found at www.cologuard.com. STOOL STOOL SPECIMEN / Unknown 12/19/2021 1:10 AM CDT 12/21/2021 5:14 PM CDT Steve Salinas MD BODY FLUIDS AND STOOLS ORDERABLE S Final Result [place] ([facility]) [address] [place] [address], [employer] (CLIA #:[id number]) [address] [place] [address] * HEPATITIS C AB ([facility] ONLY) (11/28/2021 7:24 AM CDT) HEPATITIS C AB NON-REACTI VE NON-REACT JOANA 11/28/2021 6:35 PM CDT [facility] Comment: ANTIBODIES TO HCV NOT DETECTED. DOES NOT EXCLUDE THE POSSIBILITY OF EXPOSURE TO HCV. 11/28/2021 7:24 AM CDT Steve Salinas MD LABORATORY Final Result [facility] [address] [place] [address], [id number] * PAP SMEAR WITH HPV (11/04/2020) 11/04/2020 Narrative 11/04/2020 Ordered by an unspecified provider. Documents Scanned SCANNING Final Result from Last 3 Months or Most Recently Relevant to Health Maintenance Insurance [employer] Care Teams Three Knife Trimmer Relationship Specialty Start Date End Date Steve Salinas MD [address] [facility] [address] [place] [address] PCP - General INTERNAL MEDICINE 11/14/21
== END 2024-11-20 09:26 | disposition home or self-care (01) ==
PROVIDERS: PCP Nurse Practitioner Adult Health; Visit Provider Nurse Practitioner Adult Health
DX: R07.9 Chest pain, unspecified (principal); E11.9 Type 2 diabetes mellitus without complications; I10 Essential (primary) hypertension; Z87.891 Personal history of nicotine dependence
CPT/HCPCS: 71046; 78452; 93017; A9502; J2785

== ENCOUNTER 2025-05-01 00:32 | Day surgery (SDC) | payer OTHER, SELFPAY ==
[2025-04-24 13:09] VITALS: BMI 32.9
--- OUTSIDE RECORDS SUMMARY | 2025-05-01 00:36 | XMS_ITS | Encounter Summary ---
Author Organization [facility] Address [address] [place] [address] Care Team Providers Care Food Service Lead Name Role Phone Steve Salinas MD Primary Care Provider [phone] Encounter Details Date Type Department Care Team (Late st Contact Info) Description 06/14/2022 HUNT Mobile Ads Message Enc [facility] Medical Group Multispecialty Care - [address] [place] [address] [place], [facility] Provider lab results Social History Tobacco Use [...] Coronavirus/COVID-19? No / Unsure 06/09/2022 7:35 AM SOLID WASTE LANDFILL TECHNICIAN documented as of this encounter Plan of Treatment Not on file documented as of this encounter Visit Diagnoses Not on filedocumented in this encounter Additional Health Concerns Assessment Noted Time PHQ-9 Depression Total Score: 10 022 3:10 PM CDT documented as of this encounter Care Teams Food Service Lead Relationship Specialty Start Date End Date Steve Salinas MD [address] [address] PCP - General INTERNAL MEDICINE 11/14/21 documented as of this encounter
--- OUTSIDE RECORDS SUMMARY | 2025-05-01 00:36 | XMS_ITS | Clinical Summary ---
Author Organization [facility] Address [address] [place] [address] Care Team Providers Care Api Architect Name Role Phone Steve Salinas MD Primary Care Provider [phone] Allergies Active Allergy Reactions Criticality Noted Date [...] hyperglycemia, without long-term current use of insulin ([facility]) Inject 7.5 mg into the skin weekly. 2 mL 5 2 Active glipiZIDE (GLUCOTROL) 5 MG tabletIndications :Type 2 diabetes mellitus with hyperglycemia, without long-term current use of insulin ([facility] HHS/[facility]) Take 1 tablet (5 mg total) by mouth every morning before breakfast. 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 Scanned. Depressive disorder 08/19/2018 Diabetes mellitus ([facility] HHS/HCC) 08/19/2018 Essential hypertension 08/19/2018 Hereditary essential [...] Comments Blood Pressure 112/62 07/19/2022 7:22 AM HANDTOOLS REPAIRER Pulse 63 07/19/2022 7:22 AM HANDTOOLS REPAIRER Temperature 37.1 C (98.7 F) 07/19/2022 7:22 AM HANDTOOLS REPAIRER Respiratory Rate 18 07/19/2022 7:22 AM HANDTOOLS REPAIRER Oxygen Saturation 97% 07/19/2022 7:22 AM HANDTOOLS REPAIRER Inhaled Oxygen Concentration - - Weight 93.9 kg (207 lb) 07/19/2022 7:22 AM HANDTOOLS REPAIRER Height 170.2 cm (5' 7) 07/19/2022 7:22 AM HANDTOOLS REPAIRER Body Mass Index 32.42 07/19/2022 7:22 AM HANDTOOLS REPAIRER Plan of Treatment Health Maintenance Due Date [...] (2 of 2 - PCV) 06/09/2023 06/09/2022 PHQ-2 (Physician [place]) 07/23/2024 Colorectal Cancer Screening FIT-DNA (3 Years) 12/19/2024 12/19/2021, 12/19/2021 COVID-19 Vaccine ( season) 2025 Influenza Adult (#1) 2025 04/10/2022 Mammogram Screening 10/15/2025 10/16/2023, 05/05/2022, 05/05/2022, Additional [...] insulin LIPID PANEL Routine 06/09/2022 8:22 AM HANDTOOLS REPAIRER Hyperlipidemia associated with type 2 diabetes mellitus [...] 157, [place] [address] [place] [address], * (ABNORMAL) LIPID PANEL (06/09/2022 8:22 AM HANDTOOLS REPAIRER) CHOLESTEROL 213(H) <200 MG/DL 06/09/2022 3:34 PM HANDTOOLS REPAIRER [facility] TRIGLYCERIDES 158(H) <150 MG/DL 06/09/2022 3:34 PM HANDTOOLS REPAIRER [facility] HDL 36(L) >40 MG/DL 06/09/2022 3:34 PM HANDTOOLS REPAIRER [facility] LDL-C 145(H) <100 MG/DL 06/09/2022 3:34 PM HANDTOOLS REPAIRER [facility] VLDL CALCULATION 32(H) 5 - 28 MG/DL 06/09/2022 3:34 PM HANDTOOLS REPAIRER [facility] CHOL/HDL RATIO 5.9(H) 0.0 - 4.0 06/09/2022 3:34 PM HANDTOOLS REPAIRER [facility] LDL/HDL 4.0(H) 0.41 - 2.13 06/09/2022 3:34 PM HANDTOOLS REPAIRER [facility] NON HDL CHOLESTEROL 177(H) <140 MG/DL 06/09/2022 3:34 PM HANDTOOLS REPAIRER [facility] 06/09/2022 8:22 AM HANDTOOLS REPAIRER Steve Salinas MD LABORATORY Final Result [facility] [address] [place] [address], * COLOGUARD ([employer] SCIENCE) (12/19/2021 1:10 AM CDT) COLOGUARD RESULT Negative Negative [facility] (CLIA #:[id number]) Comment: NEGATIVE TEST RESULT. A negative Cologuard [...] Hays et al, N Engl J Med 2014;370(14):9951-9882) The normal value (reference range) for this assay is negative. COLOGUARD RE-SCREENING RECOMMENDATION: Periodic colorectal cancer screening is an important part of preventive healthcare for asymptomatic individuals at average risk for colorectal cancer. Following a negative Cologuard result, the [place] Cancer Society and U.S. Multi-Society Task Force screening guidelines recommend a Cologuard re-screening interval of 3 years. References: [place] Cancer Society Guideline for Colorectal Cancer Screening: https://www.cancer.org/cancer/gvmnq-ysfzyb-eycdrr/ztwapajvj-drsmbbhus-drshyyk/ac s-rec ommendations.html.; Maksim GUTIERREZ, Feliberto PATE, Ravinder HendricksK, Colorectal Cancer Screening: Recommendations for Physicians and Patients from the U.S. Multi-Society Task Force on Colorectal Cancer Screening , Am J Gastroenterology 2017; 112:4047-2751. TEST DESCRIPTION: Composite algorithmic analysis of stool [...] Petit. et al, N Engl J Med 2014;370(14):3743-1170.) Cologuard may produce a false negative or false positive result (no colorectal cancer or precancerous polyp present at colonoscopy follow up). A negative Cologuard test result does not guarantee the absence of CRC or advanced adenoma (pre-cancer). The current Cologuard screening interval is every 3 years. ([place] Cancer Society and U.S. Multi-Society Task Force). Cologuard performance data in a 10,000 patient pivotal study using colonoscopy as the reference method can be accessed at the following location: www.allGreenup/results. Additional description of the Cologuard test process, warnings and precautions can be found at www.cologuard.com. STOOL STOOL SPECIMEN / Unknown 12/19/2021 1:10 AM CDT 12/21/2021 5:14 PM CDT us Steve Salinas MD BODY FLUIDS AND STOOLS ORDERABLE S Final Result [facility] ([facility]) [address] [place] [address], [facility] (CLIA #:[id number]) [address] [place] [address] * HEPATITIS C AB ([facility] ONLY) (11/28/2021 7:24 AM CDT) HEPATITIS C AB NON-REACTI VE NON-REACT JOANA 11/28/2021 6:35 PM CDT [facility] Comment: ANTIBODIES TO HCV NOT DETECTED. DOES NOT EXCLUDE THE POSSIBILITY OF EXPOSURE TO HCV. 11/28/2021 7:24 AM CDT Steve Salinas MD LABORATORY Final Result Performing Organization Address City/State/[facility] Co de Phone Number [facility] [address] [place] [address], [id number] * PAP SMEAR WITH HPV (11/04/2020) 11/04/2020 Narrative 11/04/2020 Ordered by an unspecified provider. us Documents Scanned SCANNING Final Result from Last 3 Months or Most Recently Relevant to Health Maintenance Insurance Care Teams Api Architect Relationship Specialty Start Date End Date Steve Salinas MD [address] [facility] [address] [place] [address] PCP - General INTERNAL MEDICINE 11/14/21
--- OUTSIDE RECORDS SUMMARY | 2025-05-01 00:36 | XMS_ITS | Encounter Summary ---
Author Organization [facility] Address [address] [place] [address] Care Team Providers Care Credit Advisor Name Role Phone Steve Salinas MD Primary Care Provider [phone] Encounter Details Date Type Department Care Team (Latest Contact Info) Description 05/08/2022 JumpSellerhart Message Enc [facility] Medical Group Multispecialty Care - [place] [address] [place] [address] [address] [place] [address] Steve Salinas MD [address] [place] [address] [address] [place], [place] [id number] Mammogram result Social History Tobacco Use Types [...] documented as of this encounter Care Teams Credit Advisor Relationship Specialty Start Date End Date Steve Salinas MD [address] [address] PCP - General INTERNAL MEDICINE 11/14/21 documented as of this encounter
[2025-05-01 07:34] VITALS: BP 148/75; PULSE 62; RESP 18; TEMP 36.4; O2SAT 98
[2025-05-01 07:40] LABS: BEDSIDEPREGUCG Negative (Negative)
[2025-05-01] MEDS: LACTATED RINGERS 1,000 ML 150 ML IV CONT (07:55)
--- NOTE | 2025-05-01 07:55 | WPDANESEPPF ---
Anes - Initial Pre Proc Eval Procedure: Operation Date: 05/01/25 08:30 Proposed Procedures p Screening Colonoscopy - Primitivo Gould MD Date/Time: 05/01/25 07:55 Surgeon: Primitivo Gould MD Pre Op Diagnosis: screening/positive cologuard Patient Data Age: 54 Gender: F Height: 1.7 m Weight: 91.3 kg Last Vital Signs Temp 36.4 C 05/01/25 07:34 Pulse 62 05/01/25 07:34 Resp 18 05/01/25 07:34 BP 148/75 H 05/01/25 07:34 Pulse Ox 98 05/01/25 07:34 O2 Del Method Room Air 05/01/25 07:34 Allergies Allergy/AdvReac Type Severity Reaction Status Date / Time Penicillins Allergy Unknown Unknown Verified 05/01/25 07:32 Home Medications ?Medication ?Instructions ?Recorded ?Confirmed ?Type bupropion HCl 300 mg 24 hr tablet, 300 mg PO QAM 09/18/24 05/01/25 History extended release cyanocobalamin (vitamin B-12) 1,000 mcg PO DAILY 09/18/24 05/01/25 History 1,000 mcg capsule diclofenac sodium 75 mg 75 mg PO DAILY 09/18/24 05/01/25 History tablet,delayed release metoprolol succinate 50 mg 50 mg PO DAILY 09/18/24 05/01/25 History tablet,extended release 24 hr primidone 50 mg tablet 50 mg PO QHS 09/18/24 05/01/25 History ropinirole 0.5 mg tablet 0.5 mg PO .HS 09/18/24 05/01/25 History rosuvastatin 40 mg tablet 40 mg PO DAILY 09/18/24 05/01/25 History sertraline 50 mg tablet 50 mg PO DAILY 09/18/24 05/01/25 History vitamin E (dl, acetate) 45 mg (100 45 mg PO DAILY 09/18/24 05/01/25 History unit) capsule Laboratory Tests 05/01/25 07:39 POC Urine HCG, Qual Negative (Negative) Patient hx anesthesia problems: none Family hx anesthesia problems: none Results Review: All pre-operative results and documents have been reviewed as part of the pre-operative evaluation. [facility] Past Medical History Medical History Hyperlipidemia Family History Family History Father Family history of heart disease in male family member before age 55 Other Diabetes mellitus Family history of cardiovascular disease Social History Social History Years smoked: 30 Smoking status: Former smoker Tobacco type: cigarettes Substance use: current Substance use type: marijuana Do You Feel Safe in your Home?: Yes Lack of Transportation: No Lack of Food: Never True Current Housing: I Have Housing Concerned About Future Housing: No Difficulty Paying Gas/Electric Bills: No Difficulty Paying for Meds: No Currently Unemployed: No Education: High School Diploma/GED Difficulty w/ Childcare or Family Care: No Living arrangements: with family Anes - Eval Final PreProcedure Day of Procedure 05/01/25 07:55 Patient weight: obese Heart: regular rate and rhythm Lungs: decreased breath sounds Airway: Mallampati scale class III Neurological: alert and oriented Last oral intake: >/= 8 hours ASA classification: III Emergent: no Anesthetic plan: proceed Anesthesia type and monitoring: general GIVS and standard monitoring Results Review: All pre-operative results and documents have been reviewed as part of the pre-operative evaluation. Informed Consent: The patient's anesthetic plan and its attendant risks and benefits were discussed with the patient/family/POA. Questions were solicited and answers provided to the satisfaction of the patient/family/POA.
--- NOTE | 2025-05-01 08:31 | PM.IMHP ---
H&P: HPI History of Present Illness Date/Time: 05/01/25 08:31 Chief Complaint: Positive Cologuard test Narrative: This is the patient's first colonoscopy. She was recently found to be Cologuard There are no GI symptoms and there is no family history of colorectal cancer. Review of Systems Review of Systems: All systems reviewed & are unremarkable except as noted in HPI and below PMFSH Past Medical History Medical History Hyperlipidemia Family History Family History Father Family history of heart disease in male family member before age 55 Other Diabetes mellitus Family history of cardiovascular disease Social History Social History Years smoked: 30 Smoking status: Former smoker Tobacco type: cigarettes Substance use: current Substance use type: marijuana Do You Feel Safe in your Home?: Yes Lack of Transportation: No Lack of Food: Never True Current Housing: I Have Housing Concerned About Future Housing: No Difficulty Paying Gas/Electric Bills: No Difficulty Paying for Meds: No Currently Unemployed: No Education: High School Diploma/GED Difficulty w/ Childcare or Family Care: No Living arrangements: with family Meds Home Medications and Allergies Home Medications ?Medication ?Instructions ?Recorded ?Confirmed ?Type bupropion HCl 300 mg 24 hr tablet, 300 mg PO QAM 09/18/24 05/01/25 History extended release cyanocobalamin (vitamin B-12) 1,000 mcg PO DAILY 09/18/24 05/01/25 History 1,000 mcg capsule diclofenac sodium 75 mg 75 mg PO DAILY 09/18/24 05/01/25 History tablet,delayed release metoprolol succinate 50 mg 50 mg PO DAILY 09/18/24 05/01/25 History tablet,extended release 24 hr primidone 50 mg tablet 50 mg PO QHS 09/18/24 05/01/25 History ropinirole 0.5 mg tablet 0.5 mg PO .HS 09/18/24 05/01/25 History rosuvastatin 40 mg tablet 40 mg PO DAILY 09/18/24 05/01/25 History sertraline 50 mg tablet 50 mg PO DAILY 02/27/25 10/10/25 History vitamin E (dl, acetate) 45 mg (100 45 mg PO DAILY 09/18/24 05/01/25 History unit) capsule Allergies Allergy/AdvReac Type Severity Reaction Status Date / Time Penicillins Allergy Unknown Unknown Verified 05/01/25 07:32 Vital Signs Vital Signs - 24 hr 05/01/25 07:34 Temperature 97.6 F Pulse Rate 62 Respiratory Rate 18 Blood Pressure 148/75 H Pulse Oximetry 98 Oxygen Delivery Room Air Exam Const: General: cooperative and healthy appearing Resp: Effort & Inspection: normal respiratory effort and able to speak in complete sentences Auscultation: clear to auscultation bilaterally Cardio: Rate: regular rate Rhythm: regular rhythm GI: Inspection: normal to inspection GI Palp: No No hepatosplenomegaly present Auscultation: normal bowel sounds Rectal Exam: deferred Skin: General skin exam: normal color Psych: Appearance: grossly normal Mental Status: mental status grossly normal Assessment and Plan Assessment and plan (1) Positive colorectal cancer screening using Cologuard test: Code(s): R19.5 - Other fecal abnormalities Status: Acute Assessment and Plan: The patient is deemed a good candidate for the procedure. Consent signed. Will proceed.
[2025-05-01 08:49] VITALS: BP 117/64; PULSE 63; RESP 16; O2SAT 98
--- NOTE | 2025-05-01 08:50 | S_PTH ---
PATIENT: Erica Fernandez LOC: [facility] U#:[id number] AGE/SX: 54/F ROOM: RE05/01/[address]: Primitivo Gould MD : 1970 BED: DIS: 05/01/2025 SPEC #: [id number] RECD: 05/01/25 09:26 STATUS: CHELSIE REQ #: [id number] LORI: 05/01/25 08:[address]: Primitivo Gould DEPT: [facility] Surgical RECD BY: Janet Montano ENTERED: 05/01/25 09:26 SP TYPE: Surgical OTHR DR: Leigh Calixto, EPIC PRELUDE ANALYST Tissues: A - Colon Polypectomy B - Colon Polypectomy Procedures: Hematoxylin and Eosin Stain Gross and Microscopic Level 4
[2025-05-01 08:59] VITALS: BP 118/64; PULSE 59; RESP 13; O2SAT 97
[2025-05-01 09:09] VITALS: BP 127/75; PULSE 63; RESP 17; O2SAT 100
== END 2025-05-01 09:18 | disposition home or self-care (01) ==
PROVIDERS: Anesthesiology; PCP Nurse Practitioner Adult Health; Referring Provider Nurse Practitioner Adult Health; Visit Provider Internal Medicine Gastroenterology
PROC: 0DJD8ZZ Inspection of Lower Intestinal Tract, Via Natural or Artificial Opening Endoscopic (ICD-10-PCS; CPT 45378; principal; 2025-05-01 08:30)
DX: R19.5 Other fecal abnormalities (principal); D12.3 Benign neoplasm of transverse colon; D12.8 Benign neoplasm of rectum; E78.5 Hyperlipidemia, unspecified; F12.90 Cannabis use, unspecified, uncomplicated; E66.9 Obesity, unspecified; Z68.31 Body mass index [BMI] 31.0-31.9, adult; Z87.891 Personal history of nicotine dependence; Z82.49 Family history of ischemic heart disease and other diseases of the circulatory system
CPT/HCPCS: 45385; 82948; 88305; J2003; J2704; J7120